=== PATIENT | female | born 1975 | race Caucasian/White ===

== ENCOUNTER 2019-08-26 01:38 | Emergency (ER) | payer MEDICAID, SELFPAY ==
[2019-08-26 01:39] VITALS: BP 197/129; PULSE 84; RESP 16; TEMP 36.4; O2SAT 100; BMI 31.5
--- NOTE | 2019-08-26 01:40 | CT_ITS ---
STUDY: CT BRAIN WITHOUT CONTRAST REASON FOR EXAM: Female, 44 years old. Headache. TECHNIQUE: Transaxial CT imaging of the brain was performed without administration of intravenous contrast material. Individualized dose optimization techniques were used for this CT. COMPARISON: 04/05/2017 CT brain. FINDINGS: No evidence of intracranial hemorrhage, mass, infarct or hydrocephalus. No skull fracture. Mild mucosal thickening ethmoid air cells and maxillary sinuses, no air fluid levels. No acute findings in the scalp. Scattered calculi and partially calcified subcutaneous cysts again demonstrated. CT/Brain/Head without Contrast IMPRESSION: Negative CT brain without contrast. Electronically Signed: Sam Whitaker, at 2:28 EDT Tel , Service support ,
--- NOTE | 2019-08-26 01:41 | ED.VIS.GEN ---
History of Present Illness Chief Complaint: Headache Informant: Patient Onset: Yesterday Context: Gradual Onset Timing: Continuous Current Severity: Moderate Maximum Severity: Moderate Narrative: The patient presents to the emergency department with headache. Patient states her history began yesterday afternoon. She describes it as a gradual onset that has been progressive. She has a history of migraine, but states she also has a history of brain bleed. She never required any intervention. She states it was just observed. She followed at [facility] in [place]. She was just recently cleared to resume her Plavix treatment for history of TIA. She states she also has a history of migraine. She states that it is difficult to determine with this headache exactly feels like. She was nauseated. She did have a few bouts of vomiting. She denies any trauma. She does have some chronic weakness in her right lower extremity from prior stroke, but states that this has not changed. She had no trouble with speech or swallowing. She denies any fevers or chills. Prior similar symptoms: Yes Recent Illness/Hospitalization: No Past Medical History - Allergies and Home Meds Allergies/Adverse Reactions: Allergies sumatriptan [From Imitrex] Allergy (Verified 08/26/19 01:43) Chest tightness Primary Care Physician: [facility] Doctor,Out of [NON-STAFF] - Prior records reviewed: Yes Past Medical History: - - TIA, intracerebral hemorrhage Surgical History: cholecystectomy - Thyroidectomy, hysterectomy Smoking Status: Current every day smoker - Family History Maternal Family History: Reports: Diabetes Paternal Family History: Reports: Heart Disease Review of Systems General: Denies: Chills, Fever, Sweats Eyes: Denies: Visual changes - bilaterally, Diplopia ENT: Denies: Rhinorrhea, Sore throat Cardiovascular: Denies: Chest pain, Palpitations Respiratory: Denies: Dyspnea, Cough, Dyspnea on exertion Gastrointestinal: Reports: Nausea, Vomiting. Denies: Abdominal pain, Diarrhea, Melena, Hematochezia Genitourinary: Denies: Dysuria, Hematuria, Frequency Musculoskeletal: Denies: Back pain, Extremity Pain Skin: Denies: Rash, Wounds Neurological: Reports: Headache. Denies: Weakness, Numbness Physical Exam Inital Vital Signs reviewed: Yes General: Well nourished, Well developed, No Acute Distress Head: Normocephalic, Atraumatic Eyes: Perrl, EOMI ENT: Moist mucous membranes, No rhinorrhea Neck: Supple, Nontender Cardiovascular: Regular rate, Regular rhythm, No murmurs Respiratory: No distress, CTA bilaterally, Chest nontender Abdomen: Soft, Nontender, Nondistended, Normal bowel sounds Back: Nontender, Normal Inspection Extremities: Nontender, No edema Skin: Normal color, No rash Neurological: Alert, Oriented x3, Cranial nerves II-XII grossly intact, Normal Strength, Normal Sensation Psychological: Normal affect, Normal Mood Diagnostic/Tx/Re-eval Clinical Impression(s) from Imaging Studies Brain CT 08/26/19 01:40 IMPRESSION: Negative CT brain without contrast. Electronically Signed: Sam Whitaker, at 2:28 EDT Tel , Service support , Abnormal Lab Results 08/26/19 08/26/19 08/26/19 01:45 01:45 01:45 WBC 14.3 H RBC 4.64 Hgb 14.5 Hct 43.8 MCV 94.4 MCH 31.3 MCHC 33.1 RDW Std Deviation 43.3 RDW Coeff of Maribel 12.5 Plt Count 356 MPV 8.8 Immature Gran % (Auto) 0.500 Neut % (Auto) 77.1 H Lymph % (Auto) 15.4 L [place] % (Auto) 4.5 Eos % (Auto) 2.0 Baso % (Auto) 0.5 Absolute Neuts (auto) 11.1 H Absolute Lymphs (auto) 2.20 Nucleated RBC % 0 PT 12.1 INR 0.9 Sodium 141 Potassium 3.6 Chloride 105 Carbon Dioxide 28.0 Anion Gap 8 BUN 8 Creatinine 0.93 Estim Creat Clear Calc 62.53 Est GFR (MDRD) Af Amer 84 Est GFR (MDRD) Non-Af 69 BUN/Creatinine Ratio 8.6 L Glucose 119 H Calcium 9.7 - Medical Decision Making The patient did have a history of intracranial bleeding. She is unsure of the exact etiology, but did not require any intervention. With her history, the patient was sent for CT of her brain. This did not show any acute intracranial abnormality. The patient was treated with migraine abortive medications. I initially held on Toradol to rule out bleeding. Screening labs were obtained were unremarkable. The patient was given Compazine, Benadryl, and fentanyl. She had minimal improvement of her headache. She was given Decadron and Toradol and was observed. The patient does have a reassuring neurologic examination. She is not encephalopathic. She is not meningitic. It is a gradual onset headache and she has a history of migraine. Her noncontrast head CT does not show any evidence of intracranial bleeding. She has no history of vascular malformation that required any intervention. I have no suspicion for subarachnoid hemorrhage. After treatment, the patient's headache was much improved. She is resting comfortably. At this point, I do feel that she is safe for outpatient therapy. She is comfortable with this plan of care. She will be given antiemetics. She was counseled on concerning symptoms and reasons to return. She will be discharged home. Impression 1. Migraine headache ED Disposition - Plan for ED Patient: Instructions: ED, Migraine (Classical) Prescriptions: Ondansetron [Zofran Odt] 4 mg PO Q8H PRN PRN #10 tab PRN Reason: Nausea Prescription Printed Referrals: [facility] Doctor,Out of [NON-STAFF] -
[2019-08-26 01:43] VITALS: PULSE 78
[2019-08-26] MEDS: 0.9% Normal Saline 1,000 ML 999 ML IV (01:47)
[2019-08-26] MEDS: proCHLORPERazine 10 MG/2 ML Vial 5 MG IV ×2 (01:47→02:22)
[2019-08-26] MEDS: DiphenhydrAMINE 50 MG/ML Syringe 25 MG IV ×2 (01:49→02:22)
[2019-08-26 01:53] LABS: Absolute Neutrophil Count 11.1 X10^3/uL (2.0-7.7); Basophil# 0.07 X10^3/uL; Basophil% 0.5 % (0-1); Eosinophil# 0.29 X10^3/uL; Hematocrit 43.8 % (37-47); Hemoglobin 14.5 g/dL (12.0-15.0); Lymphocyte % 15.4 % (19-41); Mean Corp Hgb Conc 33.1 g/dL (32-36); Mean Corpuscular Hgb 31.3 pg (27.0-32.0); Mean Corpuscular Volume 94.4 fL (81-99); Mean Platelet Vol. 8.8 fl (6.2-12.0); Monocyte# 0.64 X10^3/uL; Monocyte% 4.5 % (0-10); NRBC Flagged by Analyzer 0 % (0-5); Neutrophil # 11.06 X10^3/uL (2.7-7.7); Neutrophil % 77.1 % (47-70); Platelet Count 356 K/mm3 (150-450); RBC Distribution Width CV 12.5 % (11.6-14.6); RBC Distribution Width SD 43.3 fl (35.1-43.9); Red Blood Count 4.64 M/mm3 (4.2-5.4); White Blood Count 14.3 K/mm3 (4.4-11.0)
[2019-08-26 01:58] LABS: International Normalized Ratio 0.9; Prothrombin Time (Protime)PT. 12.1 SECONDS (11.7-14.9)
[2019-08-26 02:04] LABS: Anion Gap 8 (5-15); BUN 8 mg/dL (7-18); BUN/Creat Ratio 8.6 RATIO (10-20); Calcium,Total 9.7 mg/dL (8.5-10.1); Chloride 105 mmol/L (98-107); Creatinine, Serum 0.93 mg/dL (0.55-1.02); EST Glomerular Filtration Rate 69 mL/min (>60); Est Glom Filt Rate - Afr Amer 84 mL/min (>60); Estimated Creatinine Clearance 62.53 ml/min; Glucose 119 mg/dL (74-106); Potassium 3.6 mmol/L (3.5-5.1); Sodium Level 141 mmol/L (136-145)
[2019-08-26] MEDS: fentaNYL 100 MCG/2 ML Ampul 50 MCG IV (02:21)
[2019-08-26] MEDS: dexAMETHasone 10 MG/ML Vial IV (02:22)
[2019-08-26] MEDS: Ketorolac 30 MG/ML Syringe IV (02:54)
[2019-08-26 03:32] VITALS: BP 180/118; PULSE 86
[2019-08-26] MEDS: Metoprolol Tartrate 5 MG/5 ML Vial IV (03:32)
[2019-08-26 04:00] VITALS: BP 159/113; PULSE 86; RESP 14; O2SAT 95
== END 2019-08-26 04:23 | disposition home or self-care (01) ==
LOC: ED 01:49
PROVIDERS: Emergency Provider Emergency Medicine; Family Provider Family Medicine; PCP Internal Medicine; Referring Provider Internal Medicine
DX: G43.909 Migraine, unspecified, not intractable, without status migrainosus (principal); I69.341 Monoplegia of lower limb following cerebral infarction affecting right dominant side; F17.200 Nicotine dependence, unspecified, uncomplicated; Z79.02 Long term (current) use of antithrombotics/antiplatelets; Z79.899 Other long term (current) drug therapy
CPT/HCPCS: 70450; 80048; 85025; 85610; 96361; 96374; 96375; 96376; 99285; J7030; A4216; J2405

== ENCOUNTER 2021-02-01 18:41 | Emergency (ER) | payer MEDICAID, SELFPAY ==
[2021-02-01] VITALS (13 sets, daily range): BP systolic 121–165; BP diastolic 83–147; PULSE 76–102; RESP 16–38; TEMP 36.1; O2SAT 92–100; BMI 30.4
--- NOTE | 2021-02-01 18:58 | ED.VIS.GEN ---
History of Present Illness Chief Complaint: Foreign Body Informant: Patient Narrative: 45-year-old female presenting with esophageal obstruction. She states she was eating steak and got lodged in her esophagus. Patient has not had this happen before. She is not having trouble breathing. - Past Medical History (1) Migraine Status: Chronic (2) TIA (transient ischemic attack) Status: Chronic (3) COPD (chronic obstructive pulmonary disease) Status: Chronic (4) Depression Status: Chronic (5) Fibromyalgia Status: Chronic Past Medical History - Allergies and Home Meds Allergies/Adverse Reactions: Allergies sumatriptan [From Imitrex] Allergy (Verified 02/01/21 18:46) Chest tightness Primary Care Physician: Nia Marcial MD [Primary Care Provider] - Prior records reviewed: Yes Past Medical History: - - Reviewed in problem list Surgical History: cholecystectomy - Thyroidectomy, hysterectomy Lives: Spouse/ Significant Other Smoking Status: Current every day smoker Alcohol: None Drugs: None - Family History Maternal Family History: Reports: Diabetes Paternal Family History: Reports: Heart Disease Review of Systems General: Denies: Chills, Fever, Sweats Eyes: Denies: Visual changes - bilaterally, Diplopia ENT: Denies: Rhinorrhea, Sore throat Cardiovascular: Denies: Chest pain, Palpitations Respiratory: Denies: Dyspnea, Cough, Dyspnea on exertion Gastrointestinal: Reports: - - Foreign body esophagus. Denies: Abdominal pain, Nausea Genitourinary: Denies: Dysuria, Hematuria Musculoskeletal: Denies: Myalgias, Arthralgias, Neck pain Skin: Denies: Rash, Abscess, Abrasions Neurological: Denies: Headache, Weakness Psych: Denies: Depression, Anxiety Physical Exam Vital Signs/Narrative: Vital Signs Temp Pulse Resp BP Pulse Ox 02/01/21 18:42 96.9 F L 100 28 H 129/83 H 100 Inital Vital Signs reviewed: Yes General: Well nourished, - - Patient not tolerating her own secretions. Head: Normocephalic, Atraumatic Eyes: Negative for: Perrl, EOMI ENT: Moist mucous membranes, No rhinorrhea Neck: Supple, Nontender, - - No stridor Cardiovascular: Regular rate, Regular rhythm Respiratory: No distress, CTA bilaterally Abdomen: Soft, Nontender Extremities: Nontender, No edema Skin: Normal color, No rash. Negative for: Cyanosis, Diaphoresis Neurological: Alert, Oriented x3, Cranial nerves II-XII grossly intact Psychological: Tearful, Agitated Diagnostic/Tx/Re-eval Patient presenting with esophageal foreign body. Patient states that there is a piece of steak. Patient unable to tolerate her secretions. Glucagon given without relief. Discussed with Dr. Mclaughlin who came in to do endoscopy. Please see his procedure note. Patient was consciously sedated by myself with 160 mg of propofol. Sedation time was about 10 minutes. Patient recovered well. I did obtain an x-ray of the chest to make sure she did not aspirate. Chest x-ray is negative for acute findings as interpreted by myself. Patient counseled if she gets a cough or shortness of breath return to ER immediately. Plan: 1. Esophageal foreign body removed ED Disposition - Plan for ED Patient: Disposition: Home or Assisted Living Instructions: ED Esophageal Foreign Body, Resolved Referrals: Nia Marcial MD [Primary Care Provider] -
[2021-02-01] MEDS: Glucagon 1 MG/ML Syringe IV (19:02)
[2021-02-01] MEDS: Ondansetron 4 MG/2 ML Vial IV (19:22)
[2021-02-01] MEDS: 0.9% Normal Saline 1,000 ML 999 ML IV (20:16)
[2021-02-01] MEDS: Propofol 200 MG/20 ML Vial IV BOLUS (20:38)
--- NOTE | 2021-02-01 20:41 | OP.CCLET_ITS ---
02/01/2021 Nia Marcial Re : Upper GI endoscopy procedure for Merari Marcial This procedure was performed on Monday, February 01, 2021. My impressions and recommendations are as follows: Impressions : - Food in the upper third of the esophagus. No specimens collected. Removal was successful. - A large amount of food (residue) in the stomach. - Normal duodenal bulb. No specimens collected. Recommendations : - Discharge patient to home. - Full liquid diet for 2 days. - Continue present medications. - Repeat upper endoscopy (date not yet determined) for surveillance. - Return to primary care physician at the next available appointment. My findings are described in the full procedure note, which is enclosed. If I can be of further assistance, please feel free to contact me at Doctor phone number(s): , Fax: [phone], Work: . Sincerely, MD Flash Moyer MD 02/01/2021 8:40:44 PM This report has been signed electronically.
--- NOTE | 2021-02-01 20:41 | OP.EGD_ITS ---
Patient Name: Merari Bishop Procedure Date: 02/01/2021 8:20 PM Date of : 1975 Age: 45 Procedure: Upper GI endoscopy Indications: Foreign body in the esophagus Providers: Flash Mclaughlin MD Medicines: See the Anesthesia note for documentation of the administered medications Patient Profile: This is a 45 year old female. Refer to note in patient chart for documentation of history and physical. Complications: No immediate complications. Procedure: Pre-Anesthesia Assessment: - Prior to the procedure, a History and Physical was performed, and patient medications and allergies were reviewed. The patient's tolerance of previous anesthesia was also reviewed. The risks and benefits of the procedure and the sedation options and risks were discussed with the patient. All questions were answered, and informed consent was obtained. Prior Anticoagulants: The patient has taken no previous anticoagulant or antiplatelet agents. ASA Grade Assessment: II - A patient with mild systemic disease. After reviewing the risks and benefits, the patient was deemed in satisfactory condition to undergo the procedure. After obtaining informed consent, the endoscope was passed under direct vision. Throughout the procedure, the patient's blood pressure, pulse, and oxygen saturations were monitored continuously. The gastroscope was introduced through the mouth, and advanced to the duodenal bulb. The upper GI endoscopy was accomplished without difficulty. The patient tolerated the procedure well. Scope In: 8:30:39 PM Scope Out: 8:33:09 PM Total Procedure Duration Time 0 hours 2 minutes 30 seconds Findings: Food was found in the upper third of the esophagus. Removal of food was accomplished. No biopsies or other specimens were collected for this exam. A large amount of food (residue) was found in the entire examined stomach. The duodenal bulb was normal. No biopsies or other specimens were collected for this exam. Impression: - Food in the upper third of the esophagus. No specimens collected. Removal was successful. - A large amount of food (residue) in the stomach. - Normal duodenal bulb. No specimens collected. Recommendation: - Discharge patient to home. - Full liquid diet for 2 days. - Continue present medications. - Repeat upper endoscopy (date not yet determined) for surveillance. - Return to primary care physician at the next available appointment. Procedure Code(s): --- Professional --- 67892, Esophagogastroduodenoscopy, flexible, transoral; with removal of foreign body(s) Diagnosis Code(s): --- Professional --- T18.128A, Food in esophagus causing other injury, initial encounter T18.2XXA, Foreign body in stomach, initial encounter T18.108A, Unspecified foreign body in esophagus causing other injury, initial encounter CPT copyright 2017 [employer]. All rights reserved. The codes documented in this report are preliminary and upon metal stud framer review may be revised to meet current compliance requirements. MD Flash Moyer MD 02/01/2021 8:40:44 PM This report has been signed electronically. Number of Addenda: 0 Note Initiated On: 02/01/2021 8:20 PM
--- NOTE | 2021-02-01 20:44 | PCM.HP.STD ---
Problem List (1) Food impaction of esophagus Status: Acute Qualifiers: Encounter type: initial encounter Qualified Code(s): T18.128A - Food in esophagus causing other injury, initial encounter History of Present Illness Date of Admission: 02/01/21 The patient is a 45 year old F who was eating at [facility] this evening. As soon as she got home she started to retch and had the sensation of something stuck in her esophagus. She presented to the emergency room for treatment. Past Medical History Past Medical History (Chronic Problems): Chronic Problems Hypertension (Chronic) Fibromyalgia (Chronic) GERD (gastroesophageal reflux disease) (Chronic) Tobacco abuse (Chronic) Depression (Chronic) Hypothyroidism (Chronic) COPD (chronic obstructive pulmonary disease) (Chronic) Allergies sumatriptan [From Imitrex] Allergy (Verified 02/01/21 18:46) Chest tightness Home Medications: Ambulatory Orders Medication Instructions Recorded Albuterol Inhaler [Ventolin Hfa] 2 puff INHALATION Q4H PRN PRN 09/10/15 Duloxetine Hcl [Cymbalta] 60 mg PO BID 09/10/15 Levothyroxine [Synthroid] 100 mcg PO DAILY 09/10/15 Lisinopril [Zestril] 20 mg PO DAILY 09/10/15 Carvedilol [Coreg] 6.25 mg PO BID 08/26/19 Nitroglycerin 0.4 mg SL DAILY PRN 08/26/19 busPIRone [Buspar] 10 mg PO BID 08/26/19 Omeprazole 40 mg PO DAILY 02/01/21 Surgical History: cholecystectomy - Thyroidectomy, hysterectomy Psychiatric History: Depression 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 Smoking Status: Current every day smoker - *Family History Maternal History Items: Diabetes Paternal History Items: Heart Disease Review of Systems Constitutional: Reports: Anorexia Respiratory: Reports: Cough, Shortness of Breath Gastrointestinal: Reports: Vomiting VTE Information - Inpt Only VTE Present on Admission: No VTE Mechan Device Prophylaxis: None VTE Pharm Prophylaxis ordered?: No Reason prophylaxis not ordered:: Treatment Not Indicated Patient Problems: Active and Suspected Problems Foreign body in esophagus (Acute) - Physical Exam Vitals/I&O's: Vital Signs Temp Pulse Resp BP Pulse Ox 96.9 F L 79 24 H 121/85 H 93 02/01/21 18:42 02/01/21 20:42 02/01/21 20:42 02/01/21 20:42 02/01/21 20:42 Oxygen Flow Rate (L/min) [6] 2 Oxygen Flow Rate (L/min) [5] 2 Oxygen Flow Rate (L/min) [4] 2 Oxygen Flow Rate (L/min) [2] 2 Oxygen Flow Rate (L/min) [1 ( 2 Initial Baseline)] Oxygen Flow Rate (L/min) 2 Oxygen Delivery Method [6] Nasal Cannula Oxygen Delivery Method [5] Nasal Cannula Oxygen Delivery Method [4] Nasal Cannula Oxygen Delivery Method [3] Room Air Oxygen Delivery Method [2] Nasal Cannula Oxygen Delivery Method [1 ( Nasal Cannula Initial Baseline)] Oxygen Delivery Method Nasal Cannula Weight: 171 lb 15.369 oz Body Mass Index (BMI) 30.4 Finger Stick Blood Glucose 84 General: - - Very anxious and distressed female Lungs: Clear to auscultation Assessment/Plan All Active Problems Foreign body in esophagus (Acute) Food impaction of esophagus (Acute) Migraine (Acute) Left-sided weakness (Acute) TIA (transient ischemic attack) (Acute) Kidney stones (Resolved) My plan will be to perform an EGD and removal of food impaction in the esophagus. Risk benefits to the procedure were reviewed and she agrees to proceed. Patient understands that there can be injury and irritation to the esophagus which could require further surgical intervention. Anesthesia will be provided by the emergency room physician Dr. Barriga
--- NOTE | 2021-02-01 20:49 | RAD_ITS ---
HISTORY: cough EXAM: XR Chest 1 View: COMPARISON: April 13, 2017 FINDINGS: # of images incl. paperwork: 1 Lungs are clear. Heart is not enlarged. No acute osseous pathology perceived. Pulmonary vascularity is distinct. No effusions. RAD/Chest 1 View (Portable) IMPRESSION: Normal. at 2127 Reported and signed by: Adal Valente MD Electronically Signed: Adal Valente MD at 21:26 EST Tel , Service support ,
== END 2021-02-01 21:55 | disposition home or self-care (01) ==
PROVIDERS: Surgery; Emergency Provider Student in an Organized Health Care Education/Training Program; PCP Internal Medicine
PROC: 0DJ08ZZ Inspection of Upper Intestinal Tract, Via Natural or Artificial Opening Endoscopic (ICD-10-PCS; CPT 43235; principal; 2021-02-01 20:00)
DX: T18.128A Food in esophagus causing other injury, initial encounter (principal); E03.9 Hypothyroidism, unspecified; F17.210 Nicotine dependence, cigarettes, uncomplicated; F32.9 Major depressive disorder, single episode, unspecified; G43.909 Migraine, unspecified, not intractable, without status migrainosus; I10 Essential (primary) hypertension; J44.9 Chronic obstructive pulmonary disease, unspecified; K21.9 Gastro-esophageal reflux disease without esophagitis; M79.7 Fibromyalgia; Z79.899 Other long term (current) drug therapy; Z90.49 Acquired absence of other specified parts of digestive tract; Z90.710 Acquired absence of both cervix and uterus; Z86.73 Personal history of transient ischemic attack (TIA), and cerebral infarction without residual deficits
CPT/HCPCS: 43247; 71045; 96361; 96374; 96375; 99285; J7030; A4216; J1610; J2405

== ENCOUNTER 2023-05-19 20:08 | Inpatient (IN) | payer MEDICAID, SELFPAY ==
[2023-05-19] VITALS (17 sets, daily range): BP systolic 104–194; BP diastolic 43–118; PULSE 33–164; RESP 14–24; TEMP 36.6; O2SAT 28–100; BMI 25.3
[2023-05-19] MEDS: 0.9% Normal Saline 1,000 ML 250 ML IV ×2 (20:19→23:41)
[2023-05-19] MEDS: Etomidate 20 MG/10 ML Vial IV (20:19)
[2023-05-19] MEDS: Succinylcholine Chloride 200 MG/10 ML SYRINGE 80 MG IV (20:19)
[2023-05-19] MEDS: Propofol 10MG/Ml 1,000 MG/100 ML Bottle 3.9 MG CONT INF (20:23)
--- NOTE | 2023-05-19 20:24 | ED.VIS.DYS ---
HPI History of Present Illness Chief Complaint: Foreign Body Informant: patient and EMS Narrative Narrative: Patient states just prior to calling 911 she was eating some rib meat, and thinks maybe she aspirated it. She has been coughing, short of breath ever since then, no nausea no vomiting or dry heaving, family member try to do the Heimlich, but it did not help but she admits that she was never not able to move air and she did not lose consciousness. According to EMS, she desatted to 83% requiring oxygen, and at 1 point she temporarily had bradycardia in the 40s. She has a history of an esophageal food obstruction and had a dilated. [facility] Medical History (Updated 05/19/23 @ 22:[address] Didier Ramirez MD) CAD (coronary artery disease) COPD (chronic obstructive pulmonary disease) Depression Fibromyalgia Food impaction of esophagus GERD (gastroesophageal reflux disease) Hypertension Hypothyroidism Migraine TIA (transient ischemic attack) Medical History unable to obtain Home Medications albuterol sulfate 90 mcg/actuation aerosol inhaler (Ventolin HFA) 2 puff inhalation Q4H PRN PRN Sob &/Or Wheezing 09/10/15 [History Last Taken Unknown] duloxetine 60 mg capsule,delayed release 60 mg PO BID 09/10/15 [History Last Taken 04/13/17 08:00] levothyroxine 125 mcg tablet 100 mcg PO DAILY 09/10/15 [History Last Taken 04/13/17 07:30] lisinopril 5 mg tablet 20 mg PO DAILY 09/10/15 [History Last Taken 04/13/17 08:00] buspirone 5 mg tablet 10 mg PO BID 08/26/19 [History Last Taken Unknown] carvedilol 3.125 mg tablet 6.25 mg PO BID 08/26/19 [History Last Taken Unknown] nitroglycerin 0.4 mg sublingual tablet 0.4 mg SL DAILY PRN chest pain 08/26/19 [History Last Taken Unknown] omeprazole 40 mg capsule,delayed release 40 mg PO DAILY 02/01/21 [History Last Taken Unknown] Allergy/AdvReac Type Severity Reaction Status Date / Time sumatriptan [From Imitrex] Allergy Chest Verified 02/01/21 18:46 tightness Family History unable to obtain Surgical History unable to obtain Social History Smoking Status: Current every day smoker tobacco type: cigarettes ROS ROS ED Constitutional Constitutional ED: Denies chills or fever(s) Eyes Eyes: Denies change in vision or diplopia ENT ENT ED: Denies rhinorrhea or sore throat Cardiovascular Cardiovascular: Denies chest pain or palpitations Respiratory/Chest Respiratory/Chest: Reports cough and dyspnea Gastrointestinal Gastrointestinal: Denies abdominal pain, diarrhea, nausea or vomiting Genitourinary Genitourinary ED: Denies dysuria or hematuria Musculoskeletal Musculoskeletal: Denies back pain or neck pain Integumentary Denies abscess or rash Neurologic Neurologic: Denies headache(s), paresthesias or weakness Psychiatric Psychiatric: Denies anxiety or suicidal thoughts EXAM Physical Exam Const Vital Signs: 05/19/23 20:09 05/19/23 20:15 05/19/23 20:18 Temperature 97.9 F 97.9 F Temperature Source Temporal Pulse Rate 106 H 109 H Respiratory Rate 24 H 22 H Respiratory Effort Labored Respiratory Pattern Tachypnea Blood Pressure 125/110 H 105/70 Blood Pressure Mean 115 Pulse Ox 96 100 Oxygen Delivery Method Room Air Room Air Fraction of Inspired Oxygen (FIO2) 05/19/23 20:19 05/19/23 20:20 05/19/23 20:21 Temperature Temperature Source Pulse Rate 33 L 86 Respiratory Rate Respiratory Effort Labored Respiratory Pattern Blood Pressure 115/43 L Blood Pressure Mean 67 Pulse Ox Oxygen Delivery Method Fraction of Inspired Oxygen (FIO2) 05/19/23 20:22 05/19/23 20:30 05/19/23 20:45 Temperature Temperature Source Pulse Rate 164 H 107 H 123 H Respiratory Rate 16 16 Respiratory Effort Respiratory Pattern Blood Pressure 165/116 H 159/110 H Blood Pressure Mean 132 126 Pulse Ox 100 99 Oxygen Delivery Method Mechanical Ventilator Mechanical Ventilator Fraction of Inspired Oxygen (FIO2) 05/19/23 21:00 05/19/23 21:31 05/19/23 22:00 Temperature Temperature Source Pulse Rate 122 H 101 H 90 Respiratory Rate 22 H 23 H 14 Respiratory Effort Respiratory Pattern Blood Pressure 194/118 H 104/75 119/90 H Blood Pressure Mean 143 84 99 Pulse Ox 97 99 100 Oxygen Delivery Method Mechanical Ventilator Mechanical Ventilator Mechanical Ventilator Fraction of Inspired Oxygen (FIO2) 05/19/23 21:15 05/19/23 21:22 05/19/23 20:30 Temperature Temperature Source Pulse Rate 125 H 104 H 110 H Respiratory Rate 22 H 19 H 17 Respiratory Effort Respiratory Pattern Normal Blood Pressure 165/106 H 110/82 H Blood Pressure Mean 125 91 Pulse Ox 28 98 100 Oxygen Delivery Method Mechanical Ventilator Mechanical Ventilator Fraction of Inspired Oxygen (FIO2) 100 05/19/23 22:13 05/19/23 22:42 05/19/23 23:00 Temperature Temperature Source Pulse Rate 94 97 86 Respiratory Rate 14 17 15 Respiratory Effort Respiratory Pattern Blood Pressure 126/92 H 116/90 H 114/87 H Blood Pressure Mean 103 98 96 Pulse Ox 100 100 100 Oxygen Delivery Method Mechanical Ventilator Mechanical Ventilator Mechanical Ventilator Fraction of Inspired Oxygen (FIO2) 05/19/23 23:30 05/19/23 23:50 Temperature Temperature Source Pulse Rate 83 79 Respiratory Rate 16 16 Respiratory Effort Respiratory Pattern Normal Blood Pressure 110/73 Blood Pressure Mean 85 Pulse Ox 100 99 Oxygen Delivery Method Mechanical Ventilator Fraction of Inspired Oxygen (FIO2) 30 Positive well nourished and well developed Constitutional Narrative: Acute respiratory distress General Appearance ED: well developed HEENT Reports moist mucous membranes HEENT Narrative: Hyper salivating, leaning forward, difficulty tolerating. No stridor. Able to phonate. No obvious foreign body. normocephalic and atraumatic Eyes PERRL and EOMs intact bilaterally Neck full ROM and supple Resp clear to auscultation bilaterally Resp Narrative: Respiratory distress Cardio regular rate, regular rhythm and no murmurs Rate: tachycardic GI non-tender and non-distended Auscultation: normoactive bowel sounds Palpation: soft Back/Spine no CVA tenderness General Back: other FROM Extremity normal to inspection General Extremety ED: Negative for edema, pulses abnormal or tenderness General Extremity: Negative for edema or pulses abnormal Neuro oriented x3, CN's II-XII intact bilaterally and no sensory deficits noted Sensorium / Orientation: awake and alert Motor Exam: strength 5/5 throughout Psych Mood & Affect: anxious Skin no rashes or lesions noted and no wounds MDM MDM MDM Narrative Medical decision making narrative: Patient is having trouble tolerating secretions and protecting her airway. I recommended intubation, we did have a chance to discuss this and she was in agreement and amenable. This sounds like aspiration of a piece of food/foreign body, she states she was not able to phonate prior to getting here but now she is able to talk a little and her voice sounds fairly normal and she states this is the best she has been able to talk since then. This suggest that she had laryngospasm due to the foreign body prior to arrival, but now the foreign body has passed more distal. During the rapid sequence intubation, there is no foreign body able to be seen only clear secretions which were suctioned. 1 view chest x-ray was obtained, shows good ETT placement and no hyperexpansion or focal lobar collapse on my interpretation, and no radiopaque foreign body; we attempted to pass OG tube blindly prior to this but was unsuccessful, we had to paralyze the patient with rocuronium in order to attempt, she had already been bolused with propofol and placed on a drip and was just not sedated enough. Nursing was not able to pass an OG or an NG blindly, and there was some minor traumatic bleeding from these attempts. I attempted to the direct laryngoscopy/video laryngoscopy, and was able to determine that appeared to be a proximal esophageal foreign body consistent with a meat impaction. I discussed this with Dr. Rockwell and Dr. Gomez, Dr. Rockwell recommended calling in GI to remove it, Dr. Gomez agreed, however prior to him getting here we attempted again to remove the foreign body and we were able to actually pull it out and then passed the OG see the procedure note. Therefore we skipped endoscopy emergently, and proceeded to CT with IV contrast of the chest prior to admission. I reviewed the images and the report is pending. Appears to show some basilar atelectasis, I see no evidence of pneumomediastinum, or an obvious airway foreign body, ETT is in place as is OGT. Discussed all this with Dr. Rockwell, plan is for admission and breathing trial in the a.m. History & Record Review Discussion w/independent historian: EMS personnel, Patient and Family Lab Data Attestation: I reviewed the patient's lab results. Labs: Laboratory Results - last 24 hr 05/19/23 05/19/23 05/19/23 21:20 21:20 21:20 WBC 16.2 H RBC 4.32 Hgb 12.9 Hct 38.8 MCV 89.8 MCH 29.9 MCHC 33.2 RDW Std Deviation 43.6 RDW Coeff of Maribel 13.2 Plt Count 314 MPV 9.0 Immature Gran % (Auto) 0.800 Neut % (Auto) 68.1 Lymph % (Auto) 21.7 Wilson % (Auto) 6.1 Eos % (Auto) 2.7 Baso % (Auto) 0.6 Absolute Neuts (auto) 11.0 H Absolute Lymphs (auto) 3.52 Nucleated RBC % 0 Sodium 141 Potassium 3.5 Chloride 110 H Carbon Dioxide 24.0 Anion Gap 7 BUN 17 Creatinine 0.85 Estim Creat Clear Calc 66.23 Est GFR (MDRD) Af Amer 91 Est GFR (MDRD) Non-Af 75 BUN/Creatinine Ratio 19.9 Glucose 149 H Calcium 9.5 Total Creatine Kinase 140 Triglycerides 264 H ABG Data ABG results: ABG 05/19/23 21:17 Specimen Type ART Sample Site R Radial pH 7.36 Bicarbonate Actual 24.2 Total CO2 26 Base Excess -1 O2 Saturation 97 O2 % 30 ABG pCO2 43.1 ABG pO2 90 Marcos Test Positive Respiration Rate 14 O2 Delivery Device Adult Vent Vent Mode AC Tidal Volume 400 POC PEEP 5 Radiography Diagnostic Testing: Clinical Impression(s) from Imaging Studies Chest X-Ray 05/19/23 20:44 IMPRESSION: Endotracheal tube tip is approximately 44 mm from the mary. Low lung volumes with left perihilar streaky atelectasis versus other airspace disease. Recommend follow-up to resolution. Electronically Signed: Sam Patel MD at 21:15 EDT , KUB X-Ray 05/19/23 22:24 IMPRESSION: Enteric tube tip overlies right mid abdomen, likely distal stomach. Electronically Signed: Sam Patel MD at 23:30 EDT , Rhythm Strip Rhythm Strip: Sinus Rhythm Rate: 105 Ectopy: None EKG Initial EKG: Attestation: I personally reviewed and interpreted this EKG as follows: Interpretation: No Acute Injury Pattern and Sinus Tachycardia Management Discussion w/another healthcare provider: Hospitalist and Emergency Medicine Nurse Practitioner (CCM, GI) Procedures Intubations Intubation Method: orotracheal (7.5F ETT, secured at 22 cm at the teeth; placement confirmed by 1 view stat portable chest x-ray my interpretation, which also shows no pneumothorax or other acute abnormality) Intubation Verification: Positive color change and Bilateral breath sounds confirmed Intubation Complications: no complications (Except temporary bradycardia in the 30s without loss of pulse, successfully reversed quickly with atropine 1 mg; this was prior to inserting the ETT, I was suctioning the posterior oropharynx, performing video laryngoscopy, with normal appearance of the cords without a foreign body and without manip) Other Procedures Procedure(s): Foreign body removal, esophagus, and OGT placement by EDMD: With patient intubated and with rocuronium 50 mg and propofol drip, I used the video laryngoscope to view the proximal esophagus/posterior oropharynx, was able to see the clearly that there was a white discolored foreign body within the esophagus. Attempted to remove using the [facility] suction device, this was unsuccessful and without complication, I attempted to place Karmen forceps but I had trouble opening the patient's mandible enough to get these and without injuring her teeth so I aborted, and after the patient was waking up and was then given vecuronium 10 mg, I attempted again with pediatric Karmen forceps and I was successful in removing what appeared to be a large meat impaction of shredded meat, with 3 separate insertions of the Karmen forceps. There was no traumatic bleeding or accidental removal of tissue with this, and it was uncomplicated otherwise. Then, during the same video laryngoscopy, I inserted an OG tube down to approximately 30 cm, we were able to auscultate air that was pushed through the tube in the abdomen, and I verified placement with the one-view portable KUB showing good placement. Critical Care Time Critical Care Time: Yes Critical care time (excluding procedures): 30-74 minutes (45 min, not including procedures), Including time spent:, Discussing w/Patient &/or Family/Sql Ssrs Ssis Developer, Discussing w/Consultants, Arranging Admission or Transfer and Performing Direct Patient Care at Bedside Discharge Plan Dx/Rx/DC Orders Clinical Impression: Acute respiratory failure with hypoxia, Obstruction of esophagus due to food impaction, Aspiration of foreign body in respiratory tract Disposition Disposition: [facility]
[2023-05-19] MEDS: Rocuronium Bromide 50 MG/5 ML Vial IV (20:40)
--- NOTE | 2023-05-19 20:44 | RAD_ITS ---
INDICATION: sob, ett placement EXAMINATION/TECHNIQUE: X-RAY - XR Chest 1 View COMPARISON: 02/01/2021 chest radiograph Findings: Single frontal view of the chest. Low lung volumes. Endotracheal tube tip is approximately 44 mm from the mary. LUNG PARENCHYMA: Left perihilar streaky airspace disease. PLEURA: No pleural effusion. Bilateral upper chest skin folds. No pneumothorax. HEART/GREAT VESSELS: Cardiomediastinal silhouette is unremarkable. BONES: Osseous structures are unremarkable for age. RAD/Chest 1 View (Portable) IMPRESSION: Endotracheal tube tip is approximately 44 mm from the mary. Low lung volumes with left perihilar streaky atelectasis versus other airspace disease. Recommend follow-up to resolution. Electronically Signed: Sam Patel MD at 21:15 EDT ,
--- NOTE | 2023-05-19 20:56 | ED.RN ---
difficulty placing OG tube. doctor in room assisting.
[2023-05-19] MEDS: Atropine Sulfate 1 MG/10 ML Syringe IV (21:08)
[2023-05-19 21:21] LABS: Allen Test Positive; Base Excess -1 mmol/L (-2 to +2); Bicarbonate 24.2 mmol/L (22-26); Blood Gas Specimen Type ART; FI02 30; Mode AC; O2 Delivery Device Adult Vent; PEEP 5; PO2 90 mmHG (75-100); RR 14; SITE R Radial; SO2 97 % (95-99); Total Carbon Dioxide 26 mmol/L; Vt 400; pCO2 43.1 mmHg (35-45); pH 7.36 (7.35-7.45)
--- NOTE | 2023-05-19 21:28 | ED.RN ---
pt shaking head yes/no to questions. doctor updated. new orders entered.
[2023-05-19 21:29] LABS: Absolute Lymphocyte Count 3.52 X10^3/uL (0.83-4.51); Basophil# 0.09 X10^3/uL; Basophil% 0.6 % (0-1); Eosinophil# 0.44 X10^3/uL; Eosinophils% 2.7 % (0-5); Hematocrit 38.8 % (37-47); Hemoglobin 12.9 g/dL (12.0-15.0); Lymphocyte # 3.52 X10^3/ul (0.83-4.51); Lymphocyte % 21.7 % (19-41); Mean Corp Hgb Conc 33.2 g/dL (32-36); Mean Corpuscular Hgb 29.9 pg (27.0-32.0); Mean Corpuscular Volume 89.8 fL (81-99); Monocyte# 0.99 X10^3/uL; Monocyte% 6.1 % (0-10); NRBC Flagged by Analyzer 0 % (0-5); Neutrophil # 11.03 X10^3/uL (2.7-7.7); Neutrophil % 68.1 % (47-70); Platelet Count 314 K/mm3 (150-450); RBC Distribution Width CV 13.2 % (11.6-14.6); RBC Distribution Width SD 43.6 fl (35.1-43.9); Red Blood Count 4.32 M/mm3 (4.2-5.4); White Blood Count 16.2 K/mm3 (4.4-11.0)
[2023-05-19] MEDS: Vecuronium Bromide 10 MG/10 ML Vial IV (21:47)
[2023-05-19 21:49] LABS: Anion Gap 7 (5-15); BUN 17 mg/dL (7-18); BUN/Creat Ratio 19.9 RATIO (10-20); Calcium,Total 9.5 mg/dL (8.5-10.1); Chloride 110 mmol/L (98-107); Creatinine, Serum 0.85 mg/dL (0.55-1.02); EST Glomerular Filtration Rate 75 mL/min (>60); Est Glom Filt Rate - Afr Amer 91 mL/min (>60); Estimated Creatinine Clearance 66.23 ml/min; Glucose 149 mg/dL (74-106); Potassium 3.5 mmol/L (3.5-5.1); Sodium Level 141 mmol/L (136-145)
[2023-05-19 21:58] LABS: CPK Total, Creatine Kinase 140 U/L (26-192); Triglycerides 264 mg/dL
--- NOTE | 2023-05-19 22:01 | ED.RN ---
food bolus removed and OG placed by doctor.
--- NOTE | 2023-05-19 22:24 | RAD_ITS ---
INDICATION: OGT placement COMPARISON: Abdominal CT 07/22/2015. FINDINGS: Single frontal view of the abdomen. Enteric tube tip overlies right mid abdomen, likely distal stomach. Nonobstructive bowel gas pattern. No obvious free air. No definite suspicious calcifications. No mass appreciated. RAD/Abdomen Single View (Portable) IMPRESSION: Enteric tube tip overlies right mid abdomen, likely distal stomach. Electronically Signed: Sam Patel MD at 23:30 EDT ,
--- NOTE | 2023-05-19 23:11 | CT_ITS ---
INDICATION: hypoxic resp failure, poss aspirated FB EXAMINATION: CT CHEST WITH CONTRAST - CT Chest W/ Contrast Injection A radiation dose optimization technique was used for this scan. COMPARISON: Chest radiograph same day. FINDINGS: Contrast enhanced serial CT axial images through the chest with coronal and sagittal reformatted series. IV Contrast dosage and agent: 100mL [id number] IV. Radiation CTDIvol 16.58 Radiation DLP 479.60 MEDIASTINUM: No acute thoracic aortic abnormality. Pulmonary arteries are not well opacified, although no large obvious proximal pulmonary artery filling defects. Endotracheal tube tip is only 16 mm from the mary. Mediastinum is otherwise unremarkable. LUNG PARENCHYMA: Bilateral posterior dependent consolidation, to include atelectasis versus aspiration pneumonia. Suggestion of frothy material just at the origin of the left mainstem bronchus, likely mucoid secretions. Otherwise no definite foreign body within the airways. PLEURA: No pleural effusion. No pneumothorax. BONES: Osseous structures are unremarkable for age. UPPER ABDOMEN: Enteric tube tip overlies right mid abdomen on formation testing operator image, likely distal stomach. CT/Chest WITH Contrast IMPRESSION: Endotracheal tube tip is only 16 mm from the mary. Bilateral posterior dependent consolidation, to include atelectasis versus aspiration pneumonia. Suggestion of frothy material just at the origin of the left mainstem bronchus, likely mucoid secretions. Otherwise no definite foreign body within the airways. Electronically Signed: Sam Patel MD at 0:03 EDT ,
[2023-05-19] MEDS: fentaNYL 100 MCG/2 ML Ampul 50 MCG IV (23:26)
[2023-05-19] MEDS: fentaNYL drip 100 ML 2.5 MCG CONT INF (23:30)
[2023-05-20] VITALS (48 sets, daily range): BP systolic 70–131; BP diastolic 50–98; PULSE 60–99; RESP 14–18; TEMP 36.7–38.3; O2SAT 30–100; BMI 25.8
[2023-05-20] MEDS: Midazolam 2 MG/2 ML Syringe 4 MG IV (00:26)
[2023-05-20] MEDS: Propofol 10MG/Ml 1,000 MG/100 ML Bottle 19.5 MG CONT INF (01:03)
[2023-05-20] MEDS: LORazepam 2 MG/ML Syringe 1 MG IV (01:22)
--- NOTE | 2023-05-20 01:57 | PCM.HP.STD ---
HPI - General General Date of Admission: 05/20/23 Date of Service: 05/20/23 Chief Complaint: Took HPI Narrative SANDEE GARCIA, is a 47 F who after eating pulled pork for dinner felt like she was choking. Family tried Heimlich maneuver without any success. Patient was hypoxic and bradycardic. Patient went to emergency department by paramedics. Because patient was having difficulty with phonation and was hyper salivating she was emergently intubated. Thereafter emergency department doctor was able to help dislodge the food from patient's esophagus. [facility] Medical History CAD (coronary artery disease) COPD (chronic obstructive pulmonary disease) Depression Fibromyalgia Food impaction of esophagus GERD (gastroesophageal reflux disease) Hypertension Hypothyroidism Migraine TIA (transient ischemic attack) Medical History unable to obtain Home Medications albuterol sulfate 90 mcg/actuation aerosol inhaler (Ventolin HFA) 2 puff inhalation Q4H PRN PRN Sob &/Or Wheezing 09/10/15 [History Last Taken Unknown] duloxetine 60 mg capsule,delayed release 60 mg PO BID 09/10/15 [History Last Taken 04/13/17 08:00] levothyroxine 125 mcg tablet 100 mcg PO DAILY 09/10/15 [History Last Taken 04/13/17 07:30] lisinopril 5 mg tablet 20 mg PO DAILY 09/10/15 [History Last Taken 04/13/17 08:00] buspirone 5 mg tablet 10 mg PO BID 08/26/19 [History Last Taken Unknown] carvedilol 3.125 mg tablet 6.25 mg PO BID 08/26/19 [History Last Taken Unknown] nitroglycerin 0.4 mg sublingual tablet 0.4 mg SL DAILY PRN chest pain 08/26/19 [History Last Taken Unknown] omeprazole 40 mg capsule,delayed release 40 mg PO DAILY 02/01/21 [History Last Taken Unknown] Allergy/AdvReac Type Severity Reaction Status Date / Time sumatriptan [From Imitrex] Allergy Chest Verified 02/01/21 18:46 tightness Family History unable to obtain unable to obtain Surgical History unable to obtain unable to obtain Social History Smoking Status: Current every day smoker tobacco type: cigarettes ROS Review of Systems ROS Unobtainable: due to endotracheal tube Vital Signs Vital Signs Vital Signs: 05/19/23 20:09 05/19/23 20:15 05/19/23 20:18 Temperature 97.9 F 97.9 F Temperature Source Temporal Pulse Rate 106 H 109 H Respiratory Rate 24 H 22 H Respiratory Effort Labored Respiratory Pattern Tachypnea Blood Pressure 125/110 H 105/70 Blood Pressure Mean 115 Pulse Ox 96 100 Oxygen Delivery Method Room Air Room Air Fraction of Inspired Oxygen (FIO2) 05/19/23 20:19 05/19/23 20:20 05/19/23 20:21 Temperature Temperature Source Pulse Rate 33 L 86 Respiratory Rate Respiratory Effort Labored Respiratory Pattern Blood Pressure 115/43 L Blood Pressure Mean 67 Pulse Ox Oxygen Delivery Method Fraction of Inspired Oxygen (FIO2) 05/19/23 20:22 05/19/23 20:30 05/19/23 20:45 Temperature Temperature Source Pulse Rate 164 H 107 H 123 H Respiratory Rate 16 16 Respiratory Effort Respiratory Pattern Blood Pressure 165/116 H 159/110 H Blood Pressure Mean 132 126 Pulse Ox 100 99 Oxygen Delivery Method Mechanical Ventilator Mechanical Ventilator Fraction of Inspired Oxygen (FIO2) 05/19/23 21:00 05/19/23 21:31 05/19/23 22:00 Temperature Temperature Source Pulse Rate 122 H 101 H 90 Respiratory Rate 22 H 23 H 14 Respiratory Effort Respiratory Pattern Blood Pressure 194/118 H 104/75 119/90 H Blood Pressure Mean 143 84 99 Pulse Ox 97 99 100 Oxygen Delivery Method Mechanical Ventilator Mechanical Ventilator Mechanical Ventilator Fraction of Inspired Oxygen (FIO2) 05/19/23 21:15 05/19/23 21:22 05/19/23 20:30 Temperature Temperature Source Pulse Rate 125 H 104 H 110 H Respiratory Rate 22 H 19 H 17 Respiratory Effort Respiratory Pattern Normal Blood Pressure 165/106 H 110/82 H Blood Pressure Mean 125 91 Pulse Ox 28 98 100 Oxygen Delivery Method Mechanical Ventilator Mechanical Ventilator Fraction of Inspired Oxygen (FIO2) 100 05/19/23 22:13 05/19/23 22:42 05/19/23 23:00 Temperature Temperature Source Pulse Rate 94 97 86 Respiratory Rate 14 17 15 Respiratory Effort Respiratory Pattern Blood Pressure 126/92 H 116/90 H 114/87 H Blood Pressure Mean 103 98 96 Pulse Ox 100 100 100 Oxygen Delivery Method Mechanical Ventilator Mechanical Ventilator Mechanical Ventilator Fraction of Inspired Oxygen (FIO2) 05/19/23 23:30 05/19/23 23:50 05/20/23 00:00 Temperature Temperature Source Pulse Rate 83 79 87 Respiratory Rate 16 16 16 Respiratory Effort Respiratory Pattern Normal Blood Pressure 110/73 131/98 H Blood Pressure Mean 85 109 Pulse Ox 100 99 100 Oxygen Delivery Method Mechanical Ventilator Mechanical Ventilator Fraction of Inspired Oxygen (FIO2) 30 05/20/23 00:29 05/20/23 00:30 05/20/23 01:03 Temperature 98.0 F Temperature Source Temporal Pulse Rate 88 88 87 Respiratory Rate 16 15 15 Respiratory Effort Respiratory Pattern Blood Pressure 131/98 H 112/89 H 127/96 H Blood Pressure Mean 109 96 106 Pulse Ox 100 100 100 Oxygen Delivery Method Mechanical Ventilator Mechanical Ventilator Mechanical Ventilator Fraction of Inspired Oxygen (FIO2) 05/20/23 01:26 Temperature Temperature Source Pulse Rate 86 Respiratory Rate 15 Respiratory Effort Respiratory Pattern Blood Pressure 128/97 H Blood Pressure Mean 107 Pulse Ox 100 Oxygen Delivery Method Mechanical Ventilator Fraction of Inspired Oxygen (FIO2) Weight Weight: 64.864 kg Body Mass Index (BMI) 25.3 Physical Exam Narrative Physical exam: General: Well-nourished, well-developed. Head: Normocephalic, atraumatic, no tenderness Eyes: No conjunctival injection; no icterus. ENT, no trauma, moist mucous membranes, no rhinorrhea Neck: Nontender, No thyromegaly. CVS: Regular rate and rhythm. S1-S2 present. No murmur, gallop or rub. Respiratory : Diminished respirations, chest wall nontender Abdomen: Soft, nontender, nondistended, normal bowel sounds, no masses : Deferred Back: Nontender, no CVA tenderness Extremities: Nontender full range of motion, no trauma Skin: Normal color, no trauma, abrasions Neuro: Intubated and sedated mechanical ventilation Psychiatry: Intubated and sedated and on mechanical ventilation. Results Lab / Micro Data Result Diagrams: 05/19/23 21:20 05/19/23 21:20 Labs: Laboratory Results - last 24 hr 05/19/23 21:20: WBC 16.2 H, RBC 4.32, Hgb 12.9, Hct 38.8, MCV 89.8, MCH 29.9, MCHC 33.2, RDW Std Deviation 43.6, RDW Coeff of Maribel 13.2, Plt Count 314, MPV 9.0, Immature Gran % (Auto) 0.800, Neut % (Auto) 68.1, Lymph % (Auto) 21.7, [place] % (Auto) 6.1, Eos % (Auto) 2.7, Baso % (Auto) 0.6, Absolute Neuts (auto) 11.0 H, Absolute Lymphs (auto) 3.52, Nucleated RBC % 0 05/19/23 21:20: Sodium 141, Potassium 3.5, Chloride 110 H, Carbon Dioxide 24.0, Anion Gap 7, BUN 17, Creatinine 0.85, Estim Creat Clear Calc 66.23, Est GFR (MDRD) Af Amer 91, Est GFR (MDRD) Non-Af 75, BUN/Creatinine Ratio 19.9, Glucose 149 H, Calcium 9.5 05/19/23 21:20: Total Creatine Kinase 140, Triglycerides 264 H ABG Data ABG results: ABG 05/19/23 21:17 Specimen Type ART Sample Site R Radial pH 7.36 Bicarbonate Actual 24.2 Total CO2 26 Base Excess -1 O2 Saturation 97 O2 % 30 ABG pCO2 43.1 ABG pO2 90 Marcos Test Positive Respiration Rate 14 O2 Delivery Device Adult Vent Vent Mode AC Tidal Volume 400 POC PEEP 5 Rhythm Strip Rhythm Strip: Sinus Rhythm Rate: 105 Ectopy: None Radiology Impression Chest X-Ray 05/19/23 20:44 IMPRESSION: Endotracheal tube tip is approximately 44 mm from the mary. Low lung volumes with left perihilar streaky atelectasis versus other airspace disease. Recommend follow-up to resolution. Electronically Signed: Sam Patel MD at 21:15 EDT , KUB X-Ray 05/19/23 22:24 IMPRESSION: Enteric tube tip overlies right mid abdomen, likely distal stomach. Electronically Signed: Sam Patel MD at 23:30 EDT , Chest CT 05/19/23 23:11 IMPRESSION: Endotracheal tube tip is only 16 mm from the mary. Bilateral posterior dependent consolidation, to include atelectasis versus aspiration pneumonia. Suggestion of frothy material just at the origin of the left mainstem bronchus, likely mucoid secretions. Otherwise no definite foreign body within the airways. Electronically Signed: Sam Patel MD at 0:03 EDT , Assessment & Plan Assessment/Plan (1) Acute respiratory failure with hypoxia: (2) Obstruction of esophagus due to food impaction: (3) Aspiration of foreign body in respiratory tract: PLAN: Plan Acute respiratory failure with hypoxia possible aspiration pneumonia Required intubation on presentation. Intubation maintained. Admitted to intensive care unit. Impression of CT chest postintubation, per radiology reading: Endotracheal tube tip is only 16 mm from the mary. ? Bilateral posterior dependent consolidation, to include atelectasis versus aspiration pneumonia. Suggestion of frothy material just at the origin of the left mainstem bronchus, likely mucoid secretions. Otherwise no definite foreign body within the airways. Chest CT imaging was visualized and independently interpreted and I agree with radiology interpretation Started on Unasyn by liquified natural gas technician. Appreciate the help of liquified natural gas technician. Initial white count of 14,300. Trend Obstruction of esophagus due to food impaction Impacted food removed at the ED by ED physician. Hypotension Likely secondary to sedation. Titrate sedation as necessary. Hold home blood pressure medications. DVT prophylaxis: SCDs ordered no chemical thromboprophylaxis secondary to a traumatic removal of food/bleeding. Charges/Coding Visit Charges Inpatient E&M: 11813 Init Hosp L3
[2023-05-20] MEDS: CHLORHEXIDINE GLUC 2% CLOTH 1 EACH TOWELETTE TOPICAL (03:40)
[2023-05-20] MEDS: Propofol 10MG/Ml 1,000 MG/100 ML Bottle 13.9 MG CONT INF ×3 (06:30→20:00)
[2023-05-20] MEDS: 0.9% Normal Saline 1,000 ML 999 ML IV ×2 (06:40→07:38)
--- NOTE | 2023-05-20 07:14 | EX.PCM.CONCC ---
Assessment & Plan Assessment/Plan (1) Acute respiratory failure with hypoxia: (2) Obstruction of esophagus due to food impaction: PLAN: Plan RECOMMENDATIONS: 1. Initiate fluid sepsis bolus 2. Initiate antibiotics for aspiration 3. Trial of bronchodilators 4. Spontaneous breathing and awakening trials per protocol 5. Await GI recommendations. GI consult placed 6. Titrate down sedation IMPRESSIONS: 1. Acute hypoxic respiratory failure with aspiration pneumonia Clinical suspicion for aspiration secondary to esophageal obstruction. Patient was found to be hypoxic, but has responded well to intubation. Review of the CT scan does show some basilar infiltrates consistent with aspiration pneumonia. Patient will be started on antibiotics. Sputum culture is currently pending. Spontaneous breathing and awakening trials per protocol. Patient did appear to be oversedated on my initial evaluation. Patient carries a diagnosis of COPD, but no pulmonary function test available for review. We will try empiric bronchodilators to see if there is improvement. 2. Hypotension Patient does have some decreased blood pressures at this time. Clinical suspicion for propofol leading to current findings. Patient will be given sepsis fluid and has been initiated on antibiotics. Patient was reportedly of usual health prior to aspiration event. Patient has responded well to fluid bolus 3. Esophageal impaction with history of esophageal dilation Patient likely should be evaluated by GI prior to any p.o. intake. Obstruction has been resolved, so emergent nature is not necessary. However, patient did have significant manipulation of the posterior pharynx in the ER trying to relieve obstruction and may have some associated swelling. Would defer to GI on whether patient needs to remain intubated for endoscopy procedure 4. Depression/fibromyalgia/GERD/hypertension/hypothyroidism/history of migraine Complicates care, management, recovery and prognosis. Okay to continue with baseline medications for now, but hypertension meds may need to be held pending response to decreased propofol TIME: 37 minutes critical care time spent addressing acute hypoxic respiratory failure, hypotension, esophageal impaction, review of all data and collaboration with care team HPI Consult Data Date of Consult: 05/20/23 HPI Narrative Reason for Consultation: Respiratory failure HPI Narrative: SANDEE GARCIA is a 47 F, with past medical history listed below, who presents to [facility] on 05/19/2023 after calling 911 following a choking episode. Patient had been eating red meat and was concerned that she may have aspirated. Patient reportedly started coughing and had shortness of breath. Patient denied any nausea, vomiting or dry heaving. A family member reportedly tried to do the Heimlich but was unsuccessful. Patient reportedly never lost consciousness. According to EMS patient was saturating 83% requiring oxygen and at 1 point had bradycardic episode down into the 40s. Patient does have a history of esophageal food obstruction with dilation. In the ER, patient was afebrile, but tachycardic at 109 bpm. Patient was also noted to be labored with her breathing and became tachycardic as high as 164 bpm. Patient was subsequently intubated. During intubation, patient was noted to have no obstruction of the vocal cords, but a foreign body was noted in the upper esophagus. Multiple attempts were noted. GI was consulted, but the obstruction was able to be relieved prior to his arrival. A CT of the chest was obtained showing no obvious pneumomediastinum, but some basilar atelectasis. No airway obstruction was noted. Laboratory data showed a white blood cell count of 16.2, hemoglobin of 12.9 and platelets of 314. Chemistries were relatively unremarkable except for a slightly elevated glucose of 149 and a blood gas showed adequate oxygenation, increased AA gradient and ventilation with normal acid-base. Patient was admitted to the intensive care unit for further evaluation. Patient reportedly had been very difficult to sedate in the ER and had come to the intensive care unit on 50 of propofol after Versed and fentanyl drips. Patient has had some hypotension that was attributed to the propofol. Attempts of coming down on propofol have been successful. No significant secretions have been noted. Patient is not interactive and unable to provide any review of systems. Review of the medical record does show patient carries a diagnosis of COPD, fibromyalgia, hypertension and migraine headaches. There are no previous PFTs available for review. Patient does not have an echocardiogram on record, but does carry diagnosis of CAD. Patient reportedly is an active smoker [facility] Medical History CAD (coronary artery disease) COPD (chronic obstructive pulmonary disease) Depression Fibromyalgia Food impaction of esophagus GERD (gastroesophageal reflux disease) Hypertension Hypothyroidism Migraine TIA (transient ischemic attack) Medical History unable to obtain Home Medications albuterol sulfate 90 mcg/actuation aerosol inhaler (Ventolin HFA) 2 puff inhalation Q4H PRN PRN Sob &/Or Wheezing 09/10/15 [History Last Taken Unknown] duloxetine 60 mg capsule,delayed release 60 mg PO BID 09/10/15 [History Last Taken 04/13/17 08:00] levothyroxine 125 mcg tablet 100 mcg PO DAILY 09/10/15 [History Last Taken 04/13/17 07:30] lisinopril 5 mg tablet 20 mg PO DAILY 09/10/15 [History Last Taken 04/13/17 08:00] buspirone 5 mg tablet 10 mg PO BID 08/26/19 [History Last Taken Unknown] carvedilol 3.125 mg tablet 6.25 mg PO BID 08/26/19 [History Last Taken Unknown] nitroglycerin 0.4 mg sublingual tablet 0.4 mg SL DAILY PRN chest pain 08/26/19 [History Last Taken Unknown] omeprazole 40 mg capsule,delayed release 40 mg PO DAILY 02/01/21 [History Last Taken Unknown] Allergy/AdvReac Type Severity Reaction Status Date / Time sumatriptan [From Imitrex] Allergy Chest Verified 02/01/21 18:46 tightness Family History unable to obtain Surgical History unable to obtain Social History Smoking Status: Current every day smoker tobacco type: cigarettes ROS Review of Systems ROS Unobtainable: due to endotracheal tube and due to mental status Physical Exam Const Constitutional Narrative: RASS -4. General Appearance: cooperative, well developed and patient mechanically ventilated HEENT normocephalic and head/scalp atraumatic Mouth: endotracheal tube in place and OG tube in place Eyes EOMs intact bilaterally Eyes Narrative: Scleral injection Neck full ROM and no lymphadenopathy Neck Narrative: No crepitus noted. Resp Resp Narrative: Fair vent synchrony with coarse breath sounds. Some blood noted in the ventilator circuit Auscultation: Negative for rales, rhonchi or wheezes Cardio regular rate, regular rhythm, S1 normal heart sound, S2 normal heart sound, no murmurs, no rub and no gallops GI normal to inspection, nondistended, normoactive bowel sounds Extremity no clubbing, cyanosis or edema Skin no rashes or lesions noted Neuro Sensorium / Orientation: sedated on vent Psych Mood & Affect: flat affect Medical Records Data Attestation: I reviewed the patient's medical records Lab / Micro Data Attestation: I reviewed the patient's lab results. Result Diagrams: 05/19/23 21:20 05/19/23 21:20 Labs: Laboratory Results - last 24 hr 05/19/23 21:20: WBC 16.2 H, RBC 4.32, Hgb 12.9, Hct 38.8, MCV 89.8, MCH 29.9, MCHC 33.2, RDW Std Deviation 43.6, RDW Coeff of Maribel 13.2, Plt Count 314, MPV 9.0, Immature Gran % (Auto) 0.800, Neut % (Auto) 68.1, Lymph % (Auto) 21.7, [place] % (Auto) 6.1, Eos % (Auto) 2.7, Baso % (Auto) 0.6, Absolute Neuts (auto) 11.0 H, Absolute Lymphs (auto) 3.52, Nucleated RBC % 0 05/19/23 21:20: Sodium 141, Potassium 3.5, Chloride 110 H, Carbon Dioxide 24.0, Anion Gap 7, BUN 17, Creatinine 0.85, Estim Creat Clear Calc 66.23, Est GFR (MDRD) Af Amer 91, Est GFR (MDRD) Non-Af 75, BUN/Creatinine Ratio 19.9, Glucose 149 H, Calcium 9.5 05/19/23 21:20: Total Creatine Kinase 140, Triglycerides 264 H ABG Data ABG results: ABG 05/19/23 21:17 Specimen Type ART Sample Site R Radial pH 7.36 Bicarbonate Actual 24.2 Total CO2 26 Base Excess -1 O2 Saturation 97 O2 % 30 ABG pCO2 43.1 ABG pO2 90 Marcos Test Positive Respiration Rate 14 O2 Delivery Device Adult Vent Vent Mode AC Tidal Volume 400 POC PEEP 5 Attestation: I personally reviewed and interpreted this ABG as follows: (See HPI) Rhythm Strip Rhythm Strip: Sinus Rhythm Rate: 105 Ectopy: None Radiology Impression Chest X-Ray 05/19/23 20:44 IMPRESSION: Endotracheal tube tip is approximately 44 mm from the mary. Low lung volumes with left perihilar streaky atelectasis versus other airspace disease. Recommend follow-up to resolution. Electronically Signed: Sam Patel MD at 21:15 EDT , KUB X-Ray 05/19/23 22:24 IMPRESSION: Enteric tube tip overlies right mid abdomen, likely distal stomach. Electronically Signed: Sam Patel MD at 23:30 EDT , Chest CT 05/19/23 23:11 IMPRESSION: Endotracheal tube tip is only 16 mm from the mary. Bilateral posterior dependent consolidation, to include atelectasis versus aspiration pneumonia. Suggestion of frothy material just at the origin of the left mainstem bronchus, likely mucoid secretions. Otherwise no definite foreign body within the airways. Electronically Signed: Sam Patel MD at 0:03 EDT , Charges/Coding Procedures Hospitalists Procedures: [id number] Critial Care 1st Hr
[2023-05-20] MEDS: fentaNYL drip 100 ML 12.5 MCG CONT INF ×3 (07:36→23:39)
[2023-05-20] MEDS: Ipratropium/Albuterol Sulfate 3 ML AMPUL.NEB INHALATION ×3 (07:38→19:11)
[2023-05-20] MEDS: TITRATION PARAMETER CHANGE 1 EACH IV (07:38)
[2023-05-20] MEDS: Famotidine 20 MG Tablet GT (07:55)
[2023-05-20] MEDS: Chlorhexidine 15 ML PO ×2 (07:55→21:13)
--- NOTE | 2023-05-20 09:19 | CON.PCM.GI_ITS ---
HPI Consult Data Date of Consult: 05/20/23 HPI Narrative Reason for Consultation: food impaction HPI Narrative: SANDEE GARCIA, is a 47 F with PMH of hypertension, hypothyroidism status post thyroidectomy, history of kidney stones, depression, COPD (possible ), current 2 pack per day smoker, GERD, and fibromyalgia. ?All of the history was obtained from the chart as patient is intubated and sedated. Patient was eating some rib meat, and thinks maybe she aspirated it. ? She had been coughing, short of breath ever since then, no nausea no vomiting or dry heaving, family member try to do the Heimlich, but it did not help but she admits that she was never not able to move air and she did not lose consciousness.? According to EMS, she desatted to 83% requiring oxygen, and at 1 point she temporarily had bradycardia in the 40s.? She has a history of an esophageal food obstruction and had a dilated. She had to have food removed from the esophagus by Dr. Flash Mclaughlin back in 2020. She does not follow-up w ith anyone in regards to gastroesophageal reflux disease or any other esophageal disease. [facility] Medical History CAD (coronary artery disease) COPD (chronic obstructive pulmonary disease) Depression Fibromyalgia Food impaction of esophagus GERD (gastroesophageal reflux disease) Hypertension Hypothyroidism Migraine TIA (transient ischemic attack) Medical History unable to obtain Home Medications albuterol sulfate 90 mcg/actuation aerosol inhaler (Ventolin HFA) 2 puff inhalation Q4H PRN PRN Sob &/Or Wheezing 09/10/15 [History Last Taken Unknown] duloxetine 60 mg capsule,delayed release 60 mg PO BID 09/10/15 [History Last Taken 04/13/17 08:00] levothyroxine 125 mcg tablet 100 mcg PO DAILY 09/10/15 [History Last Taken 04/13/17 07:30] lisinopril 5 mg tablet 20 mg PO DAILY 09/10/15 [History Last Taken 04/13/17 08:00] buspirone 5 mg tablet 10 mg PO BID 08/26/19 [History Last Taken Unknown] carvedilol 3.125 mg tablet 6.25 mg PO BID 08/26/19 [History Last Taken Unknown] nitroglycerin 0.4 mg sublingual tablet 0.4 mg SL DAILY PRN chest pain 08/26/19 [History Last Taken Unknown] omeprazole 40 mg capsule,delayed release 40 mg PO DAILY 02/01/21 [History Last Taken Unknown] Allergy/AdvReac Type Severity Reaction Status Date / Time sumatriptan [From Imitrex] Allergy Chest Verified 02/01/21 18:46 tightness Family History unable to obtain Surgical History unable to obtain Social History Smoking Status: Current every day smoker tobacco type: cigarettes ROS Review of Systems ROS Unobtainable: due to endotracheal tube and due to mental status Physical Exam Const Constitutional Narrative: RASS -4. General Appearance: cooperative, well developed and patient mechanically ventilated HEENT normocephalic and head/scalp atraumatic Mouth: endotracheal tube in place and OG tube in place Eyes EOMs intact bilaterally Eyes Narrative: Scleral injection Neck full ROM and no lymphadenopathy Neck Narrative: No crepitus noted. Resp Resp Narrative: Fair vent synchrony with coarse breath sounds. Some blood noted in the ventilator circuit Auscultation: Negative for rales, rhonchi or wheezes Cardio regular rate, regular rhythm, S1 normal heart sound, S2 normal heart sound, no murmurs, no rub and no gallops GI normal to inspection, nondistended, normoactive bowel sounds Extremity no clubbing, cyanosis or edema Skin no rashes or lesions noted Neuro Sensorium / Orientation: sedated on vent Psych Mood & Affect: flat affect Lab / Micro Data Result Diagrams: 05/19/23 21:20 05/19/23 21:20 Labs: Laboratory Results - last 24 hr 05/19/23 21:20: WBC 16.2 H, RBC 4.32, Hgb 12.9, Hct 38.8, MCV 89.8, MCH 29.9, MCHC 33.2, RDW Std Deviation 43.6, RDW Coeff of Maribel 13.2, Plt Count 314, MPV 9.0, Immature Gran % (Auto) 0.800, Neut % (Auto) 68.1, Lymph % (Auto) 21.7, [place] % (Auto) 6.1, Eos % (Auto) 2.7, Baso % (Auto) 0.6, Absolute Neuts (auto) 11.0 H, Absolute Lymphs (auto) 3.52, Nucleated RBC % 0 05/19/23 21:20: Sodium 141, Potassium 3.5, Chloride 110 H, Carbon Dioxide 24.0, Anion Gap 7, BUN 17, Creatinine 0.85, Estim Creat Clear Calc 66.23, Est GFR (MDRD) Af Amer 91, Est GFR (MDRD) Non-Af 75, BUN/Creatinine Ratio 19.9, Glucose 149 H, Calcium 9.5 05/19/23 21:20: Total Creatine Kinase 140, Triglycerides 264 H ABG Data ABG results: ABG 05/19/23 21:17 Specimen Type ART Sample Site R Radial pH 7.36 Bicarbonate Actual 24.2 Total CO2 26 Base Excess -1 O2 Saturation 97 O2 % 30 ABG pCO2 43.1 ABG pO2 90 Marcos Test Positive Respiration Rate 14 O2 Delivery Device Adult Vent Vent Mode AC Tidal Volume 400 POC PEEP 5 Rhythm Strip Rhythm Strip: Sinus Rhythm Rate: 105 Ectopy: None Radiology Impression Chest X-Ray 05/19/23 20:44 IMPRESSION: Endotracheal tube tip is approximately 44 mm from the mary. Low lung volumes with left perihilar streaky atelectasis versus other airspace disease. Recommend follow-up to resolution. Electronically Signed: Sam Patel MD at 21:15 EDT , KUB X-Ray 05/19/23 22:24 IMPRESSION: Enteric tube tip overlies right mid abdomen, likely distal stomach. Electronically Signed: Sam Patel MD at 23:30 EDT , Chest CT 05/19/23 23:11 IMPRESSION: Endotracheal tube tip is only 16 mm from the mary. Bilateral posterior dependent consolidation, to include atelectasis versus aspiration pneumonia. Suggestion of frothy material just at the origin of the left mainstem bronchus, likely mucoid secretions. Otherwise no definite foreign body within the airways. Electronically Signed: Sam Patel MD at 0:03 EDT , Assessment & Plan Assessment/Plan (1) Acute respiratory failure with hypoxia: (2) Obstruction of esophagus due to food impaction: (3) Aspiration of foreign body in respiratory tract: PLAN: Plan 47-year-old with past medical history of depression, GERD, possible COPD with history of foreign body impaction in the past presents with respiratory distress after another foreign body obstruction. Currently she has acute respiratory failure with hypoxia possible aspiration pneumonia ? 1. Bilateral posterior dependent consolidation, to include atelectasis versus aspiration pneumonia. 2. Obstruction of esophagus due to food impaction Impacted food removed at the ED by ED physician. At this time she is currently stable. I would treat her with PPI drip and perform EGD with dilation at a later time. Charges/Coding Visit Charges Inpatient E&M: 96296 Init Hosp L3
--- NOTE | 2023-05-20 14:04 | CASEMGMT ---
EMERITA WATTS into pt room for assessment, pt is vented, no family present or visitors. TC to pt mother, phone number states it is incorrect. No further contacts. EMERITA WATTS assessment to be completed at later time.
--- NOTE | 2023-05-20 16:37 | NURSING ---
patient's daughter, Elena, in to visit patient, communicated to this RN patient has history of marijuana and meth use, last known use of either 2-3 weeks ago.
[2023-05-20] MEDS: Acetaminophen 650 MG/20 ML UDC GT (18:02)
[2023-05-21] VITALS (30 sets, daily range): BP systolic 92–145; BP diastolic 59–98; PULSE 59–99; RESP 12–24; TEMP 36.8–38.3; O2SAT 92–100; BMI 26.5
[2023-05-21] MEDS: Propofol 10MG/Ml 1,000 MG/100 ML Bottle 13.9 MG CONT INF (01:53)
[2023-05-21 04:21] LABS: Absolute Lymphocyte Count 1.47 X10^3/uL (0.83-4.51); Absolute Neutrophil Count 7.5 X10^3/uL (2.0-7.7); Basophil# 0.04 X10^3/uL; Basophil% 0.4 % (0-1); Eosinophil# 0.24 X10^3/uL; Eosinophils% 2.4 % (0-5); Hematocrit 29.9 % (37-47); Hemoglobin 9.4 g/dL (12.0-15.0); Lymphocyte # 1.47 X10^3/ul (0.83-4.51); Lymphocyte % 14.5 % (19-41); Mean Corp Hgb Conc 31.4 g/dL (32-36); Mean Corpuscular Hgb 30.5 pg (27.0-32.0); Mean Corpuscular Volume 97.1 fL (81-99); Monocyte# 0.89 X10^3/uL; Monocyte% 8.8 % (0-10); NRBC Flagged by Analyzer 0 % (0-5); Neutrophil # 7.45 X10^3/uL (2.7-7.7); Neutrophil % 73.6 % (47-70); Platelet Count 185 K/mm3 (150-450); RBC Distribution Width CV 13.8 % (11.6-14.6); RBC Distribution Width SD 48.9 fl (35.1-43.9); Red Blood Count 3.08 M/mm3 (4.2-5.4); White Blood Count 10.1 K/mm3 (4.4-11.0)
[2023-05-21 05:12] LABS: Albumin, Serum 2.1 g/dL (3.2-5.0)
[2023-05-21] MEDS: 0.9% Saline Lock 10 ML Syringe IV (05:18)
[2023-05-21 05:19] LABS: Anion Gap 7 (5-15); BUN 10 mg/dL (7-18); BUN/Creat Ratio 19.2 RATIO (10-20); Calcium,Total 6.7 mg/dL (8.5-10.1); Chloride 119 mmol/L (98-107); Creatinine, Serum 0.52 mg/dL (0.55-1.02); EST Glomerular Filtration Rate 133 mL/min (>60); Est Glom Filt Rate - Afr Amer 161 mL/min (>60); Estimated Creatinine Clearance 103.51 ml/min; Glucose 80 mg/dL (74-106); Magnesium 1.5 mg/dL (1.6-2.6); Phosphorus 2.3 mg/dL (2.5-4.9); Potassium 2.9 mmol/L (3.5-5.1); Sodium Level 146 mmol/L (136-145)
[2023-05-21] MEDS: CHLORHEXIDINE GLUC 2% CLOTH 1 EACH TOWELETTE TOPICAL (05:19)
[2023-05-21] MEDS: Potassium Chloride Oral Soln 20 MEQ/15 ML UDC 40 MEQ GT (05:58)
[2023-05-21 06:01] LABS: Allen Test Positive; Base Excess -1 mmol/L (-2 to +2); Bicarbonate 24.2 mmol/L (22-26); Blood Gas Specimen Type ART; FI02 25; Mode CPAP/PS; O2 Delivery Device ET Tube; PEEP 5; PO2 51 mmHG (75-100); PS 5; SITE R Radial; SO2 85 % (95-99); Total Carbon Dioxide 26 mmol/L; pCO2 40.9 mmHg (35-45); pH 7.38 (7.35-7.45)
[2023-05-21] MEDS: Magnesium Sulfate 4gm/100mL 4 GM/100 ML IV.SOLN. IV (06:01)
--- NOTE | 2023-05-21 06:30 | PN.CC_ITS ---
Assessment & Plan Assessment/Plan (1) Acute respiratory failure with hypoxia: (2) Obstruction of esophagus due to food impaction: PLAN: Plan RECOMMENDATIONS: 1. Proceed with extubation 2. Anticipate 5 days of antibiotics for aspiration pneumonia 3. Trial of bronchodilators 4. Aggressive electrolyte supplementation 5. GI work-up as an outpatient 6. Possible transfer from the intensive care unit later today pending response to extubation IMPRESSIONS: 1. Acute hypoxic respiratory failure with aspiration pneumonia Clinical suspicion for aspiration secondary to esophageal obstruction. Patient was found to be hypoxic, but has responded well to intubation. Review of the CT scan does show some basilar infiltrates consistent with aspiration pneumonia. Patient will be continued on antibiotics. Sputum culture is currently pending. Patient able to be liberated from the ventilator. Monitor in the intensive care unit pending response patient carries a diagnosis of COPD, but no pulmonary function test available for review. We will try empiric bronchodilators to see if there is improvement. 2. Hypotension Resolved. Clinical suspicion for hypotension related to medications. Monitor clinically. Likely reinitiate baseline antihypertensives in a stepwise fashion. 3. Esophageal impaction with history of esophageal dilation Await GI recommendations on timing of investigation. Preliminarily it is planned that this would happen as an outpatient 4. Depression/fibromyalgia/GERD/hypertension/hypothyroidism/history of migraine Complicates care, management, recovery and prognosis. Reinitiate antihypertensives in a stepwise fashion TIME: 32 minutes critical care time spent addressing acute hypoxic respiratory failure, hypotension, esophageal impaction, review of all data and collaboration with care team Subjective Subjective Patient did okay overnight. Patient was able to pass a spontaneous breathing trial this morning. Patient is reporting significant pain of the throat, but did have a leak. Patient has no recollection past the ER. Patient was able to report that her last esophageal dilation was higher in the neck, but not able to say exactly where it was completed. Objective Data Objective Data Vital Signs: Vital Signs Temp Pulse Resp BP Pulse Ox O2 Del Method FiO2 37.9 C H 91 12 134/86 H 93 Room Air 05/21/23 06:00 05/21/23 06:10 05/21/23 06:10 05/21/23 06:00 05/21/23 06:10 05/21/23 06:10 05/21/23 06:00 Oxygen Delivery Method Room Air Weight: 67.993 kg Body Mass Index (BMI) 26.5 Intake & Output: Intake and Output for Last 24 Hours 05/19/23 05/20/23 05/21/23 23:59 23:59 23:59 Intake Total 1020.48 / 1020.48 3311.05 / 3329.33 293.92 / 293.92 Output Total 1798 / 1798 300 / 300 Balance 1020.48 / 1020.48 1513.05 / 1531.33 -6.08 / -6.08 Lab / Micro Data Attestation: I reviewed the patient's lab results. Result Diagrams: 05/21/23 04:10 05/21/23 04:10 Labs: Laboratory Results - last 24 hr 05/21/23 04:10: WBC 10.1, RBC 3.08 L, Hgb 9.4 L, Hct 29.9 L, MCV 97.1 D, MCH 30.5, MCHC 31.4 L D, RDW Std Deviation 48.9 H, RDW Coeff of Maribel 13.8, Plt Count 185, MPV 9.0, Immature Gran % (Auto) 0.300, Neut % (Auto) 73.6 H, Lymph % (Auto) 14.5 L, [place] % (Auto) 8.8, Eos % (Auto) 2.4, Baso % (Auto) 0.4, Absolute Neuts (auto) 7.5, Absolute Lymphs (auto) 1.47, Nucleated RBC % 0 05/21/23 04:10: Sodium 146 H, Potassium 2.9 L, Chloride 119 H, Carbon Dioxide 20.0 L, Anion Gap 7, BUN 10, Creatinine 0.52 L, Estim Creat Clear Calc 103.51, Est GFR (MDRD) Af Amer 161, Est GFR (MDRD) Non-Af 133, BUN/Creatinine Ratio 19.2, Glucose 80, Calcium 6.7 L, Phosphorus 2.3 L, Magnesium 1.5 L 05/21/23 04:10: Albumin 2.1 L Micro: Microbiology 05/19/23 23:26 Sputum, Tracheal Aspirate Gram Stain - Final ABG Data ABG results: ABG 05/21/23 05:57 Specimen Type ART Sample Site R Radial pH 7.38 Bicarbonate Actual 24.2 Total CO2 26 Base Excess -1 O2 Saturation 85 L O2 % 25 ABG pCO2 40.9 ABG pO2 51 L Marcos Test Positive O2 Delivery Device ET Tube Vent Mode CPAP/PS POC PEEP 5 POC Pressure Suppt 5 Attestation: I personally reviewed and interpreted this ABG as follows: (Venous sample showing adequate pH) Rhythm Strip Rhythm Strip: Sinus Rhythm Rate: 76 Ectopy: None Physical Exam Const Constitutional Narrative: RASS 0. General Appearance: cooperative, well developed and patient mechanically ventilated HEENT normocephalic and head/scalp atraumatic HEENT Narrative: Some swelling of the lips and throat noted. Eyes EOMs intact bilaterally Eyes Narrative: Scleral injection Neck full ROM and no lymphadenopathy Neck Narrative: No crepitus noted. Resp Resp Narrative: Fair vent synchrony with coarse breath sounds. Some blood noted in the ventilator circuit Auscultation: Negative for rales, rhonchi or wheezes Cardio regular rate, regular rhythm, S1 normal heart sound, S2 normal heart sound, no murmurs, no rub and no gallops GI normal to inspection, nondistended, normoactive bowel sounds Extremity Extremity Narrative: Some swelling noted of the left upper extremity General Extremity: edema Skin no rashes or lesions noted Neuro CN's II-XII intact bilaterally and moves all extremities Psych Mood & Affect: flat affect Charges/Coding Procedures Hospitalists Procedures: 18446 Critial Care 1st Hr
[2023-05-21] MEDS: Ipratropium/Albuterol Sulfate 3 ML AMPUL.NEB INHALATION ×3 (07:11→19:20)
[2023-05-21] MEDS: Potassium Chloride 10mEq/100mL 10 MEQ/100 ML IV.SOLN. 100 MEQ IV BOLUS ×4 (07:34→12:52)
--- NOTE | 2023-05-21 07:35 | NURSING ---
Monitor alarming O2 desat, high 80's, Pt was sleeping. Increased oxygen to 4L NC. 0750- Pt awake, oxygen mid 80's on 4L NC, increased to 6L NC after several minutes, pt recovered. Sat's up to high 90's.
--- NOTE | 2023-05-21 09:29 | PN.HOSP_ITS ---
Subjective Subjective extubated, doing well, maintaining her oxygen sats with nasal cannula Objective Data Objective Data Vital Signs: Vital Signs Temp Pulse Resp BP Pulse Ox O2 Del Method O2 Flow Rate 100 F H 91 18 136/87 H 99 Nasal Cannula 6 05/21/23 09:00 05/21/23 09:00 05/21/23 09:00 05/21/23 09:00 05/21/23 09:00 05/21/23 09:00 05/21/23 08:00 FiO2 25 05/21/23 06:00 Oxygen Flow Rate (L/min) 6 Oxygen Delivery Method Nasal Cannula Weight: 149 lb 14.4 oz Body Mass Index (BMI) 26.5 Intake & Output: Intake and Output for Last 24 Hours 05/20/23 05/21/23 05/22/23 03:59 03:59 03:59 Intake Total 1492.77 / 1524.77 2992.95 / 2998.68 349.73 / 349.73 Output Total 1250 / 1325 548 / 548 535 / 535 Balance 242.77 / 199.77 2444.95 / 2450.68 -185.27 / -185.27 Lab / Micro Data Result Diagrams: 05/21/23 04:10 05/21/23 04:10 Labs: Laboratory Results - last 24 hr 05/21/23 04:10: WBC 10.1, RBC 3.08 L, Hgb 9.4 L, Hct 29.9 L, MCV 97.1 D, MCH 30.5, MCHC 31.4 L D, RDW Std Deviation 48.9 H, RDW Coeff of Maribel 13.8, Plt Count 185, MPV 9.0, Immature Gran % (Auto) 0.300, Neut % (Auto) 73.6 H, Lymph % (Auto) 14.5 L, [place] % (Auto) 8.8, Eos % (Auto) 2.4, Baso % (Auto) 0.4, Absolute Neuts (auto) 7.5, Absolute Lymphs (auto) 1.47, Nucleated RBC % 0 05/21/23 04:10: Sodium 146 H, Potassium 2.9 L, Chloride 119 H, Carbon Dioxide 20.0 L, Anion Gap 7, BUN 10, Creatinine 0.52 L, Estim Creat Clear Calc 103.51, Est GFR (MDRD) Af Amer 161, Est GFR (MDRD) Non-Af 133, BUN/Creatinine Ratio 19 .2, Glucose 80, Calcium 6.7 L, Phosphorus 2.3 L, Magnesium 1.5 L 05/21/23 04:10: Albumin 2.1 L Micro: Microbiology 05/19/23 23:26 Sputum, Tracheal Aspirate Gram Stain - Final ABG Data ABG results: ABG 05/21/23 05:57 Specimen Type ART Sample Site R Radial pH 7.38 Bicarbonate Actual 24.2 Total CO2 26 Base Excess -1 O2 Saturation 85 L O2 % 25 ABG pCO2 40.9 ABG pO2 51 L Marcos Test Positive O2 Delivery Device ET Tube Vent Mode CPAP/PS POC PEEP 5 POC Pressure Suppt 5 Rhythm Strip Rhythm Strip: Sinus Rhythm Rate: 76 Ectopy: None Physical Exam Narrative General: Alert, Oriented x3, Cooperative, No apparent distress HEENT: Atraumatic, PERRLA, EOMI, Normocephalic Oral: Moist Mucosa Neck: Supple, No JVD Lungs: Clear to auscultation, Normal air movement, No rhonchi, No wheeze, No rales Cardiovascular: Regular rate, Regular Rhythm, Normal S1, Normal S2, No murmurs Abdomen: Soft, Non Tender, Non-Distended, No Hepato-splenomegaly Extremities: Edema, Capillary Refill Less than 3 Seconds Skin: No rashes, No breakdown Musculoskeletal: No Tenderness to Palpation of Joints or Extremities Neurological: Cranial nerves II-XII grossly intact, Motor Exam 5/5 strength throughout, Sensory exam intact to light touch and pain Psych/Mental Status: Flat Assessment & Plan Assessment/Plan (1) Acute respiratory failure with hypoxia: (2) Obstruction of esophagus due to food impaction: (3) Aspiration of foreign body in respiratory tract: PLAN: Plan 1. Acute hypoxic respiratory failure secondary to aspiration pneumonia from obstruction due to food impaction ? On admission she was intubated for about 24 hours she has since been extubated and maintaining her sats ? She has continued to have a fever so continue with antibiotics ? We will need follow-up as an outpatient with gastroenterology for possible esophageal stricture dilatation, she has had strictures in the past ? We will need antibiotics on discharge ? When she is discharged she will need to maintain a full liquid diet 2. HTN/HLD ? We will hold her blood pressure medications she was hypotensive on admission ? Can resume her other home medication when she is taking p.o. 3. Anxiety/depression ? Stable ? Can continue with her home medications 4. Hypothyroidism ? Stable ? Continue with Synthroid DVT DVT: SCDs Charges/Coding Visit Charges Inpatient E&M: 67787 Subs Hosp L2
[2023-05-21] MEDS: buPROPion (XL) 150 MG TABLET.XL PO ×2 (11:28→21:40)
[2023-05-21] MEDS: DULoxetine Hcl 60 MG Capsule PO ×2 (11:28→21:40)
[2023-05-21] MEDS: Pantoprazole Sodium 40 MG Tablet PO (21:39)
[2023-05-21] MEDS: Amitriptyline 25 MG Tablet PO (21:40)
--- NOTE | 2023-05-21 21:56 | NURSING ---
Pt noted to be c/o throat pain to her sister on the phone and heard stating, I keep telling them I have pain, but no one ever does anything about it. Pt educated on limiting narcotics at this time d/t her recent extubation from the vent. Informed that giving her medicine to reduce her respiratory effort/drive is counter-productive and not in her best interest. Informed that staff can provide warm blankets/ ice packs for external pain as needed and give her ice chips to help w/mouth and throat pain. Educated that giving her throat-numbing medication is also not in her best interest as it could limit her sensation of swallowing and cause more problems than what is already happening. Pt stated gratefulness for clear explanation. And asked to be woken up when her Tylenol dose can be given.
[2023-05-22] VITALS (14 sets, daily range): BP systolic 91–114; BP diastolic 63–72; PULSE 71–98; RESP 14–22; TEMP 36.8–36.9; O2SAT 94–99; BMI 25.4
[2023-05-22] MEDS: Acetaminophen 650 MG/20 ML UDC GT (00:17)
[2023-05-22] MEDS: Levothyroxine 100 MCG Tablet PO (05:22)
[2023-05-22 05:53] LABS: Absolute Lymphocyte Count 2.05 X10^3/uL (0.83-4.51); Basophil# 0.04 X10^3/uL; Basophil% 0.4 % (0-1); Eosinophil# 0.38 X10^3/uL; Eosinophils% 3.4 % (0-5); Hematocrit 29.6 % (37-47); Hemoglobin 9.8 g/dL (12.0-15.0); Lymphocyte # 2.05 X10^3/ul (0.83-4.51); Lymphocyte % 18.2 % (19-41); Mean Corp Hgb Conc 33.1 g/dL (32-36); Mean Corpuscular Volume 93.7 fL (81-99); Monocyte# 0.77 X10^3/uL; Monocyte% 6.8 % (0-10); NRBC Flagged by Analyzer 0 % (0-5); Neutrophil # 7.98 X10^3/uL (2.7-7.7); Neutrophil % 70.8 % (47-70); Platelet Count 211 K/mm3 (150-450); RBC Distribution Width CV 13.2 % (11.6-14.6); RBC Distribution Width SD 45.5 fl (35.1-43.9); Red Blood Count 3.16 M/mm3 (4.2-5.4); White Blood Count 11.3 K/mm3 (4.4-11.0)
[2023-05-22 06:14] LABS: Albumin, Serum 2.2 g/dL (3.2-5.0); Anion Gap 3 (5-15); BUN 8 mg/dL (7-18); BUN/Creat Ratio 19.1 RATIO (10-20); Calcium,Total 8.2 mg/dL (8.5-10.1); Chloride 114 mmol/L (98-107); Creatinine, Serum 0.42 mg/dL (0.55-1.02); EST Glomerular Filtration Rate 171 mL/min (>60); Est Glom Filt Rate - Afr Amer 207 mL/min (>60); Estimated Creatinine Clearance 128.15 ml/min; Glucose 86 mg/dL (74-106); Magnesium 1.9 mg/dL (1.6-2.6); Phosphorus 2.5 mg/dL (2.5-4.9); Potassium 3.7 mmol/L (3.5-5.1); Sodium Level 143 mmol/L (136-145)
[2023-05-22] MEDS: Ipratropium/Albuterol Sulfate 3 ML AMPUL.NEB INHALATION (07:33)
--- NOTE | 2023-05-22 07:58 | PN.CC_ITS ---
Assessment & Plan Assessment/Plan (1) Acute respiratory failure with hypoxia: (2) Obstruction of esophagus due to food impaction: PLAN: Plan RECOMMENDATIONS: 1. Okay to transition to Augmentin to complete antibiotic treatment course. 2. Perform walking oximetry study prior to consideration for discharge home. 3. Continue nicotine replacement therapy. 4. As needed bronchodilators. 5. Outpatient gastroenterology follow-up. 6. We will sign off from a critical care perspective. Please call with any additional questions. IMPRESSIONS: 1. Acute hypoxic respiratory failure with aspiration pneumonia Clinical suspicion for aspiration secondary to esophageal obstruction. Although the patient did require intubation, she was able to be successfully extubated on May 21 without any further respiratory sequelae. At this time, her antibiotics can be transition to Augmentin to complete her 7-day treatment course. I would recommend that a walking oximetry study be completed prior to consideration for discharge home. As needed bronchodilators can be continued. 2. Esophageal impaction with history of esophageal dilation Await GI recommendations on timing of investigation. Preliminarily it is planned that this would happen as an outpatient 3. Depression/fibromyalgia/GERD/hypertension/hypothyroidism/history of migraine Complicates care, management, recovery and prognosis. Continue home medications as indicated. This note was generated with [employer] dictation software. It may contain incorrect words, spelling, and punctuation that were not noted in checking the note before signing. Subjective Subjective The patient was seen and examined at the bedside this morning. Events from the last 24 hours have been reviewed. The patient is currently afebrile, hemodynamically stable and maintaining appropriate oxygen saturations on room air. The patient has done well from a respiratory perspective following extubation yesterday. She denies any resting shortness of breath this morning. Objective Data Objective Data The patient's most recent lab work, culture data and imaging studies have all been personally reviewed. Infectious work-up has been unrevealing to date. Vital Signs: Vital Signs Temp Pulse Resp BP Pulse Ox O2 Del Method O2 Flow Rate 98.2 F 71 17 107/68 94 Nasal Cannula 2 05/22/23 04:00 05/22/23 07:33 05/22/23 07:33 05/22/23 07:00 05/22/23 07:37 05/22/23 07:37 05/22/23 07:37 FiO2 25 05/21/23 06:00 Oxygen Flow Rate (L/min) 2 Oxygen Delivery Method Nasal Cannula Weight: 144 lb Body Mass Index (BMI) 25.4 Intake & Output: Intake and Output for Last 24 Hours 05/20/23 05/21/23 05/22/23 23:59 23:59 23:59 Intake Total 3311.05 / 3329.33 1113.92 / 1113.92 238.00 / 238.00 Output Total 1798 / 1798 1100 / 1100 600 / 600 Balance 1513.05 / 1531.33 13.92 / 13.92 -362.00 / -362.00 Lab / Micro Data Attestation: I reviewed the patient's lab results. Result Diagrams: 05/22/23 05:30 05/22/23 05:30 Labs: Laboratory Results - last 24 hr 05/22/23 05:30: WBC 11.3 H, RBC 3.16 L, Hgb 9.8 L, Hct 29.6 L, MCV 93.7, MCH 31.0, MCHC 33.1 D, RDW Std Deviation 45.5 H, RDW Coeff of Maribel 13.2, Plt Count 211, MPV 9.0, Immature Gran % (Auto) 0.400, Neut % (Auto) 70.8 H, Lymph % (Auto) 18.2 L, [place] % (Auto) 6.8, Eos % (Auto) 3.4, Baso % (Auto) 0.4, Absolute Neuts (auto) 8.0 H, Absolute Lymphs (auto) 2.05, Nucleated RBC % 0 05/22/23 05:30: Sodium 143, Potassium 3.7, Chloride 114 H, Carbon Dioxide 26.0, Anion Gap 3 L, BUN 8, Creatinine 0.42 L, Estim Creat Clear Calc 128.15, Est GFR (MDRD) Af Amer 207, Est GFR (MDRD) Non-Af 171, BUN/Creatinine Ratio 19.1, Glucose 86, Calcium 8.2 L, Phosphorus 2.5, Magnesium 1.9, Albumin 2.2 L Micro: Microbiology 05/19/23 23:26 Sputum, Tracheal Aspirate Gram Stain - Final 05/19/23 23:26 Sputum, Tracheal Aspirate Respiratory Culture - Preliminary Appears to be normal respiratory michi. Further studies to follow. Rhythm Strip Rhythm Strip: Sinus Rhythm Rate: 76 Ectopy: None Physical Exam Const alert and no apparent distress General Appearance: cooperative HEENT normocephalic and head/scalp atraumatic Eyes PERRL, EOMs intact bilaterally and conjunctivae normal Neck supple General: trachea midline Chest inspection of chest normal Resp normal respiratory effort Auscultation: Negative for rales, rhonchi or wheezes Cardio regular rate and regular rhythm GI normal to inspection, nondistended, normoactive bowel sounds Extremity no clubbing, cyanosis or edema Skin no rashes or lesions noted Neuro CN's II-XII intact bilaterally, moves all extremities and no focal motor deficits Psych cooperative and affect normal Charges/Coding Visit Charges Inpatient E&M: 31672 Subs Hosp L3
[2023-05-22] MEDS: buPROPion (XL) 150 MG TABLET.XL PO (08:36)
[2023-05-22] MEDS: Pantoprazole Sodium 40 MG Tablet PO (08:36)
[2023-05-22] MEDS: DULoxetine Hcl 60 MG Capsule PO (08:36)
--- NOTE | 2023-05-22 10:08 | DCINST_ITS ---
Discharge Instructions Diet Discharge Diet: - (Full liquid diet augmented by a boost and Ensure) Activity Discharge Activity: Return to Normal Activity Dressing / Incision Call your doctor if you observe: Fever of 101 or Higher, Shortness of breath, Dizziness, Fainting spells, Swelling in the ankles, Chest pain and Increased palpitations (irregular heartbeat) Follow Up Care Test Results: Test results from this visit will be discussed in further detail at your follow- up appointment, if applicable. Discharge Plan Admission Admit Date/Time: 05/20/23 01:44 Attending Provider: Nawaf Chase Primary Care Provider: Nia Marcial Consulting Providers: Gerard Rockwell ; Rene Jones Discharge Orders/Prescriptions Prescriptions: New amoxicillin-pot clavulanate 875-125 mg tablet 1 tab PO BID Qty: 14 0RF Continued levothyroxine 125 MCG tablet 100 mcg PO DAILY Label Comments: thyroid lisinopril 5 MG tablet 20 mg PO DAILY Label Comments: hypertention albuterol sulfate [Ventolin HFA] 1 INHALER inhaler 2 puff inhalation Q4H PRN PRN (Reason: Sob &/Or Wheezing) Label Comments: sob/wheezing duloxetine 60 MG capsule 60 mg PO BID Label Comments: depression nitroglycerin 0.4 MG tablet, sublingual 0.4 mg SL DAILY PRN (Reason: chest pain) omeprazole 40 MG capsule,delayed release(DR/EC) 40 mg PO DAILY atorvastatin 80 mg Tablet 80 mg PO DAILY ondansetron HCl 4 mg Tablet 4 mg PO Q6H PRN (Reason: Nausea) amlodipine 5 mg Tablet 5 mg PO DAILY amitriptyline 25 mg Tablet 25 mg PO QHS bupropion HCl [Wellbutrin XL] 150 mg Tablet Extended Release 24 Hr 150 mg PO BID budesonide-formoterol [Symbicort] 160-4.5 mcg/actuation Hfa Aerosol Inhaler 2 puff INHALATION BID baclofen 5 mg Tablet 5 - 10 mg PO TID PRN (Reason: Muscle Spasm) Referrals / Follow Up: Nia Marcial MD [Primary Care Provider] - Within 1 Week Michael Gomez DO [Med Staff - Active Staff] - Within 2 Weeks Disposition Disposition (needs filled in before D/C Order can be placed): Home, Self Care
--- NOTE | 2023-05-22 10:25 | CASEMGMT ---
Addendum entered by Katina Burciaga 05/22/23 10:39: Pt requested her mother to be removed from her contact list. Original Note: EMERITA WATTS Assessment: Face to Face with pt for initial transition planning/care coordination assessment. EMERITA WATTS introduced self and role at [facility], pt voices understanding and consents to assessment. Pt is A/O x4 and answers all questions appropriately at this time. Pt sitting up in bed with ST at bedside. Care providers, pharmacy, and demographics verified/updated. Admitting Dx: foreign body in esophagus PCP:Aniket Specialists:[facility] in [place] Preferred Pharmacy: [facility] Insurance: [facility] Prescription Benefit: yes LNOK: Mena Lynch, dtr Living Arrangements: Pt lives in a single story home with 2 steps to enter. Pt lives with her mother, dtr and her dtr's boyfriend and 4 children as well as her ex . Pt reports she is I in ADL's and denies concerns at home. Transportation: Pt does not drive, pt boyfriend transports her to medical appts. DME/HHC/SNF: Pt has a cane and walker at home but does not use. Pt denies hx of HHC or SNF stays. Pt states no concerns with going home at time of dc. Pt did not qualify for home oxygen. Pt reports she smokes 2 packs of cigarettes per day, denies alcohol and has medical marijuana card. Pt states she has sed meth 2 weeks ago and she has an appt at [facility] in [place] for counseling for this. Pt denies need to speak to for resources. Pt states no further concerns/needs. CM to follow. Advised pt to ask CM if any further question/concerns/needs arise, voices understanding. Pt Goal: Home Plan: Home
--- NOTE | 2023-05-22 11:23 | DS.PCM_ITS ---
Providers Date of Admission: 05/20/23 Primary Care Physician: Dr. Nia Marcial MD Consultations 05/20/23 02:46 Consult: Business Planning Director / Pulmonary Medicine Routine Consulting Provider: Gerard Alvarado Reason for Consult: Vent management EMERGENT Consult: No Notified: Yes Date Notified: 05/20/23 Time Notified: 02:17 Method of Notification: ED Physician Initiated 05/20/23 07:38 Consult: Gastroenterology Routine Consulting Provider: [facility] Reason for Consult: Esophageal obstruction EMERGENT Consult: No Notified: Yes Date Notified: 05/20/23 Time Notified: 07:39 Method of Notification: Verbal Comments:: dr alvarado discussed with dr. boone Reason For Visit: FOREIGN BODY IN ESOPHAGUS Diagnosis Discharge Diagnosis (1) Acute respiratory failure with hypoxia: Status: Acute Code(s): J96.01 - Acute respiratory failure with hypoxia (2) Obstruction of esophagus due to food impaction: Status: Acute Code(s): K22.2 - Esophageal obstruction; T18.128A - Food in esophagus causing other injury, initial encounter Medications at Discharge Home Medications albuterol sulfate 90 mcg/actuation aerosol inhaler (Ventolin HFA) 2 puff inhalation Q4H PRN PRN Sob &/Or Wheezing 09/10/15 duloxetine 60 mg capsule,delayed release 60 mg PO BID Check with primary doctor 09/10/15 levothyroxine 125 mcg tablet 100 mcg PO DAILY Check with primary doctor 09/10/15 lisinopril 5 mg tablet 20 mg PO DAILY Check with primary doctor 09/10/15 nitroglycerin 0.4 mg sublingual tablet 0.4 mg SL DAILY PRN chest pain 08/26/19 omeprazole 40 mg capsule,delayed release 40 mg PO DAILY Check with primary doctor 02/01/21 amitriptyline 25 mg tablet 25 mg PO QHS Check with primary doctor 05/20/23 amlodipine 5 mg tablet 5 mg PO DAILY Check with primary doctor 05/20/23 atorvastatin 80 mg tablet 80 mg PO DAILY Check with primary doctor 05/20/23 baclofen 5 mg tablet 5 - 10 mg PO TID PRN Muscle Spasm 05/20/23 budesonide-formoterol HFA 160 mcg-4.5 mcg/actuation aerosol inhaler (Symbicort) 2 puff inhalation BID Check with primary doctor 05/20/23 bupropion HCl 150 mg 24 hr tablet, extended release (Wellbutrin XL) 150 mg PO BID Check with primary doctor 05/20/23 ondansetron HCl 4 mg tablet 4 mg PO Q6H PRN Nausea 05/20/23 amoxicillin 875 mg-potassium clavulanate 125 mg tablet 1 tab PO BID #14 tabs 05/22/23 Hospital Course Operations None Procedures Intubation Summary of Care Provided Minutes Spent on Discharge: 33 Hospital Course: Per HPI: SANDEE GARCIA, is a 47 F who after eating pulled pork for dinner felt like she was choking.? Family tried Heimlich maneuver without any success.? Patient was hypoxic and bradycardic.? Patient went to emergency department by paramedics.? Because patient was having difficulty with phonation and was hyper salivating she was emergently intubated.? Thereafter emergency department doctor was able to help dislodge the food from patient's esophagus. Hospital Course: 1. Acute hypoxic respiratory failure secondary to aspiration pneumonia from obstruction due to food impaction that?47-year-old female who has had previous esophageal strictures that had to be dilated presented to the hospital due to hypoxic respiratory failure. She needed to be intubated in the ER it does appear that the esophageal obstruction has resolved but there is a significant risk for aspiration pneumonia. She was started on Unasyn. She was extubated on 05/21/2023 and today she had an ambulatory pulse ox prior to discharge which did not demonstrate a need for oxygen with ambulation. I discussed with her the need to follow-up with gastroenterology as an outpatient to schedule repeat EGD and dilatation, in the meantime we will continue with full liquid diet with supplementation with boost and Ensure to make sure she is getting appropriate calories. We will also continue with Augmentin twice daily for 7 more days for aspiration pneumonia treatment. I discussed with her the plan for possible discharge today she expressed understanding of the risk benefits of going home and would like to go home today. 2. Hypertension, hyperlipidemia, anxiety, depression, hypothyroidism are all chronic medical conditions which complicate her care. Her home medications were continued where appropriate Physical Exam Narrative General: Alert, Oriented x3, Cooperative, No apparent distress HEENT: Atraumatic, PERRLA, EOMI, Normocephalic Oral: Moist Mucosa Neck: Supple, No JVD Lungs: Clear to auscultation, Normal air movement, No rhonchi, No wheeze, No rales Cardiovascular: Regular rate, Regular Rhythm, Normal S1, Normal S2, No murmurs Abdomen: Soft, Non Tender, Non-Distended, No Hepato-splenomegaly Extremities: No edema, Capillary Refill Less than 3 Seconds Skin: No rashes, No breakdown Musculoskeletal: No Tenderness to Palpation of Joints or Extremities Neurological: Cranial nerves II-XII grossly intact, Motor Exam 5/5 strength throughout, Sensory exam intact to light touch and pain Psych/Mental Status: Normal affect Weight / BMI Weight Weight: 144 lb Body Mass Index (BMI) 25.4 ABG / Lab / Microbiology Data Result Diagrams: 05/22/23 05:30 05/22/23 05:30 Laboratory: Laboratory Results - last 24 hr 05/22/23 05:30: WBC 11.3 H, RBC 3.16 L, Hgb 9.8 L, Hct 29.6 L, MCV 93.7, MCH 31.0, MCHC 33.1 D, RDW Std Deviation 45.5 H, RDW Coeff of Maribel 13.2, Plt Count 211, MPV 9.0, Immature Gran % (Auto) 0.400, Neut % (Auto) 70.8 H, Lymph % (Auto) 18.2 L, [place] % (Auto) 6.8, Eos % (Auto) 3.4, Baso % (Auto) 0.4, Absolute Neuts (auto) 8.0 H, Absolute Lymphs (auto) 2.05, Nucleated RBC % 0 05/22/23 05:30: Sodium 143, Potassium 3.7, Chloride 114 H, Carbon Dioxide 26.0, Anion Gap 3 L, BUN 8, Creatinine 0.42 L, Estim Creat Clear Calc 128.15, Est GFR (MDRD) Af Amer 207, Est GFR (MDRD) Non-Af 171, BUN/Creatinine Ratio 19.1, G lucose 86, Calcium 8.2 L, Phosphorus 2.5, Magnesium 1.9, Albumin 2.2 L Microbiology: Microbiology 05/19/23 23:26 Sputum, Tracheal Aspirate Gram Stain - Final 05/19/23 23:26 Sputum, Tracheal Aspirate Respiratory Culture - Final D/C Instructions Discharge Diet: - (Full liquid diet augmented by a boost and Ensure) Call your doctor if you observe: Fever of 101 or Higher, Shortness of breath, D izziness, Fainting spells, Swelling in the ankles, Chest pain and Increased palpitations (irregular heartbeat) Meaningful Use Info Meaningful Use Diagnoses (Choose all that apply): None applicable Discharge Plan Admission Admit Date/Time: 05/20/23 01:44 Attending Provider: Nawaf Chase Primary Care Provider: Nia Marcial Consulting Providers: Gerard Alvarado ; Rene Jones Discharge Orders/Prescriptions Prescriptions: New amoxicillin-pot clavulanate 875-125 mg tablet 1 tab PO BID Qty: 14 0RF Continued levothyroxine 125 MCG tablet 100 mcg PO DAILY Label Comments: thyroid lisinopril 5 MG tablet 20 mg PO DAILY Label Comments: hypertention albuterol sulfate [Ventolin HFA] 1 INHALER inhaler 2 puff inhalation Q4H PRN PRN (Reason: Sob &/Or Wheezing) Label Comments: sob/wheezing duloxetine 60 MG capsule 60 mg PO BID Label Comments: depression nitroglycerin 0.4 MG tablet, sublingual 0.4 mg SL DAILY PRN (Reason: chest pain) omeprazole 40 MG capsule,delayed release(DR/EC) 40 mg PO DAILY atorvastatin 80 mg Tablet 80 mg PO DAILY ondansetron HCl 4 mg Tablet 4 mg PO Q6H PRN (Reason: Nausea) amlodipine 5 mg Tablet 5 mg PO DAILY amitriptyline 25 mg Tablet 25 mg PO QHS bupropion HCl [Wellbutrin XL] 150 mg Tablet Extended Release 24 Hr 150 mg PO BID budesonide-formoterol [Symbicort] 160-4.5 mcg/actuation Hfa Aerosol Inhaler 2 puff INHALATION BID baclofen 5 mg Tablet 5 - 10 mg PO TID PRN (Reason: Muscle Spasm) Referrals / Follow Up: Nia Marcial MD [Primary Care Provider] - Within 1 Week FriendMichael DO [Med Staff - Active Staff] - Within 2 Weeks Disposition Disposition (needs filled in before D/C Order can be placed): Home, Self Care Charges/Coding Visit Charges Inpatient E&M: 51093 Disch Hosp >30min
== END 2023-05-22 12:20 | disposition home or self-care (01) | DRG 254 ==
LOC: ED 22:09 → ICU 05-20 02:54
PROVIDERS: Internal Medicine Critical Care Medicine; Admitting Provider Hospitalist; Emergency Provider Emergency Medicine; PCP Internal Medicine; Visit Provider Family Medicine
DX: T18.128A Food in esophagus causing other injury, initial encounter (principal); J96.01 Acute respiratory failure with hypoxia; J69.0 Pneumonitis due to inhalation of food and vomit; J44.9 Chronic obstructive pulmonary disease, unspecified; K22.2 Esophageal obstruction; I95.2 Hypotension due to drugs; I25.10 Atherosclerotic heart disease of native coronary artery without angina pectoris; K21.9 Gastro-esophageal reflux disease without esophagitis; I10 Essential (primary) hypertension; E78.5 Hyperlipidemia, unspecified; F17.210 Nicotine dependence, cigarettes, uncomplicated; F32.A Depression, unspecified; F41.9 Anxiety disorder, unspecified; E89.0 Postprocedural hypothyroidism; M79.7 Fibromyalgia; T41.295A Adverse effect of other general anesthetics, initial encounter; X58.XXXA Exposure to other specified factors, initial encounter; Z79.899 Other long term (current) drug therapy; Z86.73 Personal history of transient ischemic attack (TIA), and cerebral infarction without residual deficits
CPT/HCPCS: 31500; 31720; 36600; 51702; 71045; 71260; 74018; 80048; 82040; 82550; 82803; 83735; 84100; 84478; 85025; 87070; 87205; 92610; 93005; 94002; 94003; 94640; 94668; 94762; 97162; 99252; 99285; 99406; J7030; J7050; Q9967; A4216; G0463; J0612